=== PATIENT | female | born 1945 | race Caucasian/White ===

== ENCOUNTER 2022-10-14 14:38 | Inpatient (IN) | payer OTHER ==
[2022-10-14 16:09] VITALS: BMI 31.8
[2022-10-14] MEDS ORDERED: ALBUTEROL SO4 2.5/IPRATROPIUM 0.5 INH SOL 3 ML VIAL.NEB. NEB ONE ×2 (16:51→16:58)
[2022-10-14 17:48] LABS: HEMATOCRIT 44.6 % (32.4-45.2); HEMOGLOBIN 14.7 GM/dL (10.7-15.3); MCH 32.5 pg (25.7-33.7); MCHC 32.9 g/dl (32.0-36.0); MEAN CELL VOLUME 98.6 fl (80-96); MEAN PLT VOLUME 7.6 fl (7.5-11.1); PLATELET COUNT 222 10^3/uL (134-434); RBC 4.52 M/mm3 (3.60-5.2); RDW 14.4 % (11.6-15.6); WHITE BLOOD COUNT 19.4 K/mm3 (4.0-10.0)
[2022-10-14 18:12] LABS: CALCIUM 8.7 mg/dL (8.5-10.1)
[2022-10-14 18:13] LABS: ALBUMIN 3.1 g/dl (3.4-5.0); BLOOD UREA NITROGEN 22.7 mg/dL (7-18); MAGNESIUM 2.4 mg/dL (1.8-2.4)
[2022-10-14 18:16] LABS: CREATININE 0.8 mg/dL (0.55-1.3)
[2022-10-14 18:17] LABS: TOT PROT 6.9 g/dl (6.4-8.2)
[2022-10-14] MEDS ORDERED: ACETAMINOPHEN 500 MG TABLET (FP) PO ONE (18:21)
[2022-10-14] MEDS ORDERED: ACETAMINOPHEN 325 MG TABLET (FP) ONE (18:24)
[2022-10-14 18:44] LABS: VENOUS BASE EXCESS 4.7 mmol/L (-2-2); VENOUS O2 SATURATION 29.4 % (70-80); VENOUS PH 7.295 (7.310-7.410)
[2022-10-14] MEDS ORDERED: ACETAMINOPHEN 325 MG TABLET (FP) PO PRN (20:00)
[2022-10-14] MEDS ORDERED: CARVEDILOL 6.25 MG TABLET (FP) ONE (21:51)
[2022-10-14] MEDS ORDERED: ATORVASTATIN CA 10 MG TABLET (FP) ONE (21:51)
[2022-10-14] MEDS ORDERED: ASPIRIN 325 MG TABLET ONE (21:51)
[2022-10-14] MEDS ORDERED: OSELTAMIVIR PHOSPHATE 75 MG CAPSULE ONE (21:51)
[2022-10-14] MEDS ORDERED: methylPREDNISolone NA SUCC 40 MG/1 ML VIAL ONE (21:52)
[2022-10-14] MEDS ORDERED: HEPARIN NA (PORCINE) 5,000 UNITS/ML 1ML VIAL ONE (21:52)
[2022-10-14] MEDS ORDERED: CARVEDILOL 6.25 MG TABLET (FP) PO SCH (22:00)
[2022-10-14] MEDS: HEPARIN NA (PORCINE) 5,000 UNITS/ML 1ML VIAL SQ SCH (22:10)
[2022-10-14] MEDS: ASPIRIN 325 MG TABLET PO SCH (22:10)
[2022-10-14] MEDS: ATORVASTATIN CA 10 MG TABLET (FP) PO SCH (22:10)
[2022-10-14] MEDS: methylPREDNISolone NA SUCC 40 MG/1 ML VIAL IVPUSH SCH (22:10)
[2022-10-14] MEDS: OSELTAMIVIR PHOSPHATE 75 MG CAPSULE PO SCH (22:10)
[2022-10-14] MEDS: INSULIN SLIDING SCALE (NOVOLOG) 1 VIAL SQ SCH (22:11)
[2022-10-14] MEDS: MOMETASONE FUROATE 220 MCG/IH INHALER IH SCH (23:22)
[2022-10-15] MEDS ORDERED: ALBUTEROL SO4 0.083% IH SOL 2.5 MG/3 ML VIAL.NEB. NEB ONE ×3 (00:47→15:46)
[2022-10-15] MEDS ORDERED: guaiFENesin 200 MG/10 ML 10 ML UNIT-DOSE CUPS ONE (00:47)
[2022-10-15] MEDS: guaiFENesin 200 MG/10 ML 10 ML UNIT-DOSE CUPS PO PRN ×2 (00:55→15:46)
[2022-10-15] MEDS: ALBUTEROL SO4 0.083% IH SOL 2.5 MG/3 ML VIAL.NEB. NEB PRN ×3 (00:55→15:46)
[2022-10-15] MEDS ORDERED: methylPREDNISolone NA SUCC 40 MG/1 ML VIAL ONE ×4 (06:29→21:05)
[2022-10-15] MEDS: methylPREDNISolone NA SUCC 40 MG/1 ML VIAL IVPUSH SCH ×4 (06:36→21:16)
[2022-10-15] MEDS: INSULIN SLIDING SCALE (NOVOLOG) 1 VIAL SQ SCH ×4 (08:06→21:31)
[2022-10-15] MEDS ORDERED: buPROPion HCL 100 MG TABLET ONE (08:10)
[2022-10-15] MEDS ORDERED: FOLIC ACID 1 MG TABLET (FP) ONE (08:10)
[2022-10-15] MEDS ORDERED: CARVEDILOL 6.25 MG TABLET (FP) ONE (08:10)
[2022-10-15] MEDS ORDERED: OSELTAMIVIR PHOSPHATE 75 MG CAPSULE ONE (08:10)
[2022-10-15] MEDS ORDERED: HEPARIN NA (PORCINE) 5,000 UNITS/ML 1ML VIAL ONE ×2 (08:10→21:05)
[2022-10-15] MEDS ORDERED: AZITHROMYCIN IVPB 500 MG/250 ML BAG IVPB ONE (08:11)
[2022-10-15] MEDS ORDERED: CEFTRIAXONE 1 GM/50 ML BAG ONE (08:11)
[2022-10-15] MEDS ORDERED: ACETAMINOPHEN 325 MG TABLET (FP) ONE ×2 (08:18→12:01)
[2022-10-15] MEDS: buPROPion HCL 75 MG TABLET PO SCH ×2 (08:26→22:25)
[2022-10-15] MEDS: HEPARIN NA (PORCINE) 5,000 UNITS/ML 1ML VIAL SQ SCH ×2 (09:07→21:16)
[2022-10-15] MEDS: CEFTRIAXONE 1 GM in DEXTROSE 5%-WATER - 50 ML IVPB SCH (09:07)
[2022-10-15] MEDS: FAMOTIDINE 20 MG TABLET PO SCH (09:07)
[2022-10-15] MEDS: metoPROLOL SUCCINATE 25 MG TAB.SR.24H (FP) PO SCH (09:07)
[2022-10-15] MEDS: FOLIC ACID 1 MG TABLET (FP) PO SCH (09:07)
[2022-10-15] MEDS: MOMETASONE FUROATE 220 MCG/IH INHALER IH SCH (09:07)
[2022-10-15] MEDS: OSELTAMIVIR PHOSPHATE 75 MG CAPSULE PO SCH (09:07)
[2022-10-15] MEDS: AZITHROMYCIN IVPB 500 MG/250 ML BAG IVPB SCH (09:46)
[2022-10-15] MEDS: TIOTROPIUM BROMIDE 2.5 MCG (SPIRIVA) RESPIMAT INHALER IH SCH (09:46)
[2022-10-15 12:43] LABS: HEMATOCRIT 41.9 % (32.4-45.2); HEMOGLOBIN 13.6 GM/dL (10.7-15.3); MCH 32.3 pg (25.7-33.7); MCHC 32.5 g/dl (32.0-36.0); MEAN CELL VOLUME 99.5 fl (80-96); MEAN PLT VOLUME 8.2 fl (7.5-11.1); PLATELET COUNT 206 10^3/uL (134-434); RBC 4.21 M/mm3 (3.60-5.2); RDW 14.3 % (11.6-15.6); WHITE BLOOD COUNT 16.8 K/mm3 (4.0-10.0)
[2022-10-15 13:04] LABS: CALCIUM 8.5 mg/dL (8.5-10.1)
[2022-10-15 13:07] LABS: BLOOD UREA NITROGEN 24.4 mg/dL (7-18)
[2022-10-15 13:08] LABS: ALBUMIN 2.8 g/dl (3.4-5.0); CREATININE 0.7 mg/dL (0.55-1.3)
[2022-10-15 13:09] LABS: TOT PROT 6.4 g/dl (6.4-8.2)
[2022-10-15 13:47] LABS: ANISOCYTOSIS 0; MACROCYTOSIS 0
[2022-10-15] MEDS ORDERED: guaiFENesin/D-METHORPHAN HB 10 ML UNIT-DOSE CUPS ONE (15:42)
[2022-10-15] MEDS ORDERED: FUROSEMIDE 40 MG/4 ML INJECTABLE VIAL ONE (18:00)
[2022-10-15] MEDS: FUROSEMIDE 40 MG/4 ML INJECTABLE VIAL IVPUSH SCH (18:12)
[2022-10-15] MEDS ORDERED: ASPIRIN 325 MG TABLET ONE (21:04)
[2022-10-15] MEDS ORDERED: ATORVASTATIN CA 10 MG TABLET (FP) ONE (21:04)
[2022-10-15] MEDS: ASPIRIN 325 MG TABLET PO SCH (21:16)
[2022-10-15] MEDS: ATORVASTATIN CA 10 MG TABLET (FP) PO SCH (22:10)
[2022-10-16] MEDS: MOMETASONE FUROATE 220 MCG/IH INHALER IH SCH ×3 (01:58→21:43)
[2022-10-16] MEDS ORDERED: methylPREDNISolone NA SUCC 40 MG/1 ML VIAL ONE (02:41)
[2022-10-16] MEDS: methylPREDNISolone NA SUCC 40 MG/1 ML VIAL IVPUSH SCH ×4 (02:51→21:29)
[2022-10-16] MEDS: INSULIN SLIDING SCALE (NOVOLOG) 1 VIAL SQ SCH ×4 (09:12→21:43)
[2022-10-16] MEDS: buPROPion HCL 75 MG TABLET PO SCH ×2 (09:13→21:43)
[2022-10-16] MEDS: CEFTRIAXONE 1 GM in DEXTROSE 5%-WATER - 50 ML IVPB SCH (09:14)
[2022-10-16] MEDS: FOLIC ACID 1 MG TABLET (FP) PO SCH (09:15)
[2022-10-16] MEDS: metoPROLOL SUCCINATE 25 MG TAB.SR.24H (FP) PO SCH (09:15)
[2022-10-16] MEDS: FAMOTIDINE 20 MG TABLET PO SCH (09:15)
[2022-10-16] MEDS: FUROSEMIDE 40 MG/4 ML INJECTABLE VIAL IVPUSH SCH (09:15)
[2022-10-16] MEDS: HEPARIN NA (PORCINE) 5,000 UNITS/ML 1ML VIAL SQ SCH ×2 (09:15→21:29)
[2022-10-16] MEDS: AZITHROMYCIN IVPB 500 MG/250 ML BAG IVPB SCH (10:19)
[2022-10-16 10:53] LABS: HEMATOCRIT 45.2 % (32.4-45.2); HEMOGLOBIN 14.9 GM/dL (10.7-15.3); MCH 32.5 pg (25.7-33.7); MEAN CELL VOLUME 98.4 fl (80-96); MEAN PLT VOLUME 8.1 fl (7.5-11.1); PLATELET COUNT 274 10^3/uL (134-434); RDW 14.2 % (11.6-15.6); WHITE BLOOD COUNT 17.6 K/mm3 (4.0-10.0)
[2022-10-16 11:14] LABS: BLOOD UREA NITROGEN 33.1 mg/dL (7-18)
[2022-10-16 11:15] LABS: ALBUMIN 3.1 g/dl (3.4-5.0)
[2022-10-16 11:18] LABS: CREATININE 1.1 mg/dL (0.55-1.3)
[2022-10-16 11:19] LABS: BILIRUBIN,TOTAL 1.1 mg/dL (0.2-1); TOT PROT 7.2 g/dl (6.4-8.2)
[2022-10-16] MEDS: TIOTROPIUM BROMIDE 2.5 MCG (SPIRIVA) RESPIMAT INHALER IH SCH (11:19)
[2022-10-16 11:35] LABS: ANISOCYTOSIS 1+; MACROCYTOSIS 0; TEAR DROP CELLS 1+
[2022-10-16] MEDS: ALBUTEROL SO4 0.083% IH SOL 2.5 MG/3 ML VIAL.NEB. NEB SCH ×3 (11:52→20:05)
[2022-10-16] MEDS: ATORVASTATIN CA 10 MG TABLET (FP) PO SCH (21:29)
[2022-10-16] MEDS: ASPIRIN 325 MG TABLET PO SCH (21:29)
[2022-10-17] MEDS: methylPREDNISolone NA SUCC 40 MG/1 ML VIAL IVPUSH SCH ×3 (03:00→21:21)
[2022-10-17] MEDS: INSULIN SLIDING SCALE (NOVOLOG) 1 VIAL SQ SCH ×4 (06:30→21:26)
[2022-10-17] MEDS: ALBUTEROL SO4 0.083% IH SOL 2.5 MG/3 ML VIAL.NEB. NEB SCH ×4 (08:18→20:52)
[2022-10-17] MEDS: CEFTRIAXONE 1 GM in DEXTROSE 5%-WATER - 50 ML IVPB SCH (09:25)
[2022-10-17] MEDS: FOLIC ACID 1 MG TABLET (FP) PO SCH (09:25)
[2022-10-17] MEDS: TIOTROPIUM BROMIDE 2.5 MCG (SPIRIVA) RESPIMAT INHALER IH SCH (09:25)
[2022-10-17] MEDS: metoPROLOL SUCCINATE 25 MG TAB.SR.24H (FP) PO SCH (09:25)
[2022-10-17] MEDS: HEPARIN NA (PORCINE) 5,000 UNITS/ML 1ML VIAL SQ SCH ×2 (09:25→21:19)
[2022-10-17] MEDS: FUROSEMIDE 40 MG/4 ML INJECTABLE VIAL IVPUSH SCH (09:25)
[2022-10-17] MEDS: FAMOTIDINE 20 MG TABLET PO SCH (09:25)
[2022-10-17] MEDS: AZITHROMYCIN IVPB 500 MG/250 ML BAG IVPB SCH (10:49)
[2022-10-17] MEDS: MOMETASONE FUROATE 220 MCG/IH INHALER IH SCH ×2 (10:49→21:53)
[2022-10-17] MEDS: VENLAFAXINE HCL 37.5 MG E.R. CAPSULE PO SCH (11:40)
[2022-10-17] MEDS: ASPIRIN 325 MG TABLET PO SCH (21:19)
[2022-10-17] MEDS: ATORVASTATIN CA 10 MG TABLET (FP) PO SCH (21:19)
[2022-10-18] MEDS: INSULIN SLIDING SCALE (NOVOLOG) 1 VIAL SQ SCH ×4 (06:48→21:24)
[2022-10-18 08:22] LABS: CALCIUM 8.5 mg/dL (8.5-10.1)
[2022-10-18 08:25] LABS: CREATININE 0.9 mg/dL (0.55-1.3)
[2022-10-18 08:26] LABS: BILIRUBIN,TOTAL 1.1 mg/dL (0.2-1); TOT PROT 6.8 g/dl (6.4-8.2)
[2022-10-18 08:30] LABS: BLOOD UREA NITROGEN 36.3 mg/dL (7-18)
[2022-10-18] MEDS: ALBUTEROL SO4 0.083% IH SOL 2.5 MG/3 ML VIAL.NEB. NEB SCH ×4 (08:50→19:55)
[2022-10-18] MEDS: VENLAFAXINE HCL 37.5 MG E.R. CAPSULE PO SCH (09:14)
[2022-10-18] MEDS: MOMETASONE FUROATE 220 MCG/IH INHALER IH SCH ×2 (09:14→21:37)
[2022-10-18] MEDS: HEPARIN NA (PORCINE) 5,000 UNITS/ML 1ML VIAL SQ SCH ×2 (09:15→21:15)
[2022-10-18] MEDS: FOLIC ACID 1 MG TABLET (FP) PO SCH (09:15)
[2022-10-18] MEDS: metoPROLOL SUCCINATE 25 MG TAB.SR.24H (FP) PO SCH (09:16)
[2022-10-18] MEDS: CEFTRIAXONE 1 GM in DEXTROSE 5%-WATER - 50 ML IVPB SCH (09:16)
[2022-10-18] MEDS: TIOTROPIUM BROMIDE 2.5 MCG (SPIRIVA) RESPIMAT INHALER IH SCH (09:16)
[2022-10-18] MEDS: FAMOTIDINE 20 MG TABLET PO SCH (09:16)
[2022-10-18] MEDS: methylPREDNISolone NA SUCC 40 MG/1 ML VIAL IVPUSH SCH ×2 (09:16→21:14)
[2022-10-18] MEDS: FUROSEMIDE 40 MG/4 ML INJECTABLE VIAL IVPUSH SCH (09:16)
[2022-10-18] MEDS: AZITHROMYCIN IVPB 500 MG/250 ML BAG IVPB SCH (10:14)
[2022-10-18 11:36] LABS: BASO % 0.1 % (0-2.0); HEMATOCRIT 41.7 % (32.4-45.2); HEMOGLOBIN 13.7 GM/dL (10.7-15.3); LYMPH % 4.7 % (8-40); MCH 32.1 pg (25.7-33.7); MCHC 32.8 g/dl (32.0-36.0); MEAN CELL VOLUME 97.9 fl (80-96); MEAN PLT VOLUME 8.1 fl (7.5-11.1); MONO % 5.4 % (3.8-10.2); NEUT % 89.8 % (42.8-82.8); PLATELET COUNT 226 10^3/uL (134-434); RBC 4.26 M/mm3 (3.60-5.2); RDW 13.7 % (11.6-15.6); WHITE BLOOD COUNT 11.2 K/mm3 (4.0-10.0)
[2022-10-18] MEDS ORDERED: BENZOCAINE/MENTH/CETYLPYRD CL 1 EACH LOZENGE MM PRN (11:59)
[2022-10-18] MEDS: ATORVASTATIN CA 10 MG TABLET (FP) PO SCH (21:15)
[2022-10-18] MEDS: ASPIRIN 325 MG TABLET PO SCH (21:15)
[2022-10-19] MEDS: INSULIN SLIDING SCALE (NOVOLOG) 1 VIAL SQ SCH ×4 (06:17→23:20)
[2022-10-19] MEDS: ALBUTEROL SO4 0.083% IH SOL 2.5 MG/3 ML VIAL.NEB. NEB SCH ×4 (08:21→20:04)
[2022-10-19] MEDS: methylPREDNISolone NA SUCC 40 MG/1 ML VIAL IVPUSH SCH ×2 (10:05→23:21)
[2022-10-19] MEDS: metoPROLOL SUCCINATE 25 MG TAB.SR.24H (FP) PO SCH (10:05)
[2022-10-19] MEDS: FOLIC ACID 1 MG TABLET (FP) PO SCH (10:05)
[2022-10-19] MEDS: FUROSEMIDE 20 MG TABLET (FP) PO SCH (10:05)
[2022-10-19] MEDS: FAMOTIDINE 20 MG TABLET PO SCH (10:05)
[2022-10-19] MEDS: CEFTRIAXONE 1 GM in DEXTROSE 5%-WATER - 50 ML IVPB SCH (10:05)
[2022-10-19] MEDS: HEPARIN NA (PORCINE) 5,000 UNITS/ML 1ML VIAL SQ SCH ×2 (10:05→23:13)
[2022-10-19] MEDS: VENLAFAXINE HCL 37.5 MG E.R. CAPSULE PO SCH (10:07)
[2022-10-19] MEDS: TIOTROPIUM BROMIDE 2.5 MCG (SPIRIVA) RESPIMAT INHALER IH SCH (10:09)
[2022-10-19] MEDS: MOMETASONE FUROATE 220 MCG/IH INHALER IH SCH ×2 (10:09→23:13)
[2022-10-19] MEDS: AZITHROMYCIN IVPB 500 MG/250 ML BAG IVPB SCH (10:09)
[2022-10-19] MEDS ORDERED: MAG HYDROX/AL HYDROX/SIMETH 30 ML UNIT-DOSE CUP PO PRN (18:06)
[2022-10-19] MEDS ORDERED: POLYETHYLENE GLYCOL (HEALTHYLAX) 3350 17 GM PACKET PO PRN (18:07)
[2022-10-19] MEDS: ASPIRIN 325 MG TABLET PO SCH (23:13)
[2022-10-19] MEDS: ATORVASTATIN CA 10 MG TABLET (FP) PO SCH (23:13)
[2022-10-20] MEDS: INSULIN SLIDING SCALE (NOVOLOG) 1 VIAL SQ SCH ×4 (06:10→21:21)
[2022-10-20] MEDS ORDERED: INSULIN (LEVEMIR) 100 UNITS/ML UNITS SQ ONE ×2 (06:11→06:20)
[2022-10-20] MEDS ORDERED: INSULIN (NOVOLOG) ASPART 100 UNITS/ML 10ML VIAL ONE ×3 (06:11→21:49)
[2022-10-20] MEDS: ALBUTEROL SO4 0.083% IH SOL 2.5 MG/3 ML VIAL.NEB. NEB SCH ×4 (07:50→21:15)
[2022-10-20 08:48] LABS: BASO % 0.3 % (0-2.0); HEMATOCRIT 39.8 % (32.4-45.2); LYMPH % 6.3 % (8-40); MCH 32.2 pg (25.7-33.7); MCHC 32.7 g/dl (32.0-36.0); MEAN CELL VOLUME 98.2 fl (80-96); MEAN PLT VOLUME 8.7 fl (7.5-11.1); MONO % 4.5 % (3.8-10.2); NEUT % 88.9 % (42.8-82.8); PLATELET COUNT 195 10^3/uL (134-434); RBC 4.06 M/mm3 (3.60-5.2); RDW 13.8 % (11.6-15.6)
[2022-10-20 09:34] LABS: BLOOD UREA NITROGEN 29.8 mg/dL (7-18); CALCIUM 8.6 mg/dL (8.5-10.1)
[2022-10-20 09:35] LABS: ALBUMIN 2.8 g/dl (3.4-5.0)
[2022-10-20 09:36] LABS: CHOLESTEROL 140 mg/dL (50-200); CREATININE 0.8 mg/dL (0.55-1.3)
[2022-10-20 09:37] LABS: TRIGLYCERIDES 119 mg/dL (0-150)
[2022-10-20 09:38] LABS: BILIRUBIN,TOTAL 1.1 mg/dL (0.2-1); LDL CHOLESTEROL (ONLY SJRH) 64 mg/dL (5-100); TOT PROT 5.9 g/dl (6.4-8.2)
[2022-10-20 09:39] LABS: HDL CHOLESTEROL 64 mg/dL (40-60)
[2022-10-20] MEDS: metoPROLOL SUCCINATE 25 MG TAB.SR.24H (FP) PO SCH (09:59)
[2022-10-20] MEDS: HEPARIN NA (PORCINE) 5,000 UNITS/ML 1ML VIAL SQ SCH ×2 (09:59→21:21)
[2022-10-20] MEDS: FUROSEMIDE 20 MG TABLET (FP) PO SCH (09:59)
[2022-10-20] MEDS: FAMOTIDINE 20 MG TABLET PO SCH (09:59)
[2022-10-20] MEDS: FOLIC ACID 1 MG TABLET (FP) PO SCH (09:59)
[2022-10-20] MEDS: methylPREDNISolone NA SUCC 40 MG/1 ML VIAL IVPUSH SCH ×2 (09:59→21:21)
[2022-10-20] MEDS: TIOTROPIUM BROMIDE 2.5 MCG (SPIRIVA) RESPIMAT INHALER IH SCH (10:00)
[2022-10-20] MEDS: VENLAFAXINE HCL 37.5 MG E.R. CAPSULE PO SCH (10:00)
[2022-10-20] MEDS: MOMETASONE FUROATE 220 MCG/IH INHALER IH SCH ×2 (10:01→21:22)
[2022-10-20 14:07] LABS: BILIRUBIN,DIRECT 0.4 mg/dL (0.0-0.2)
[2022-10-20] MEDS: ASPIRIN 325 MG TABLET PO SCH (21:21)
[2022-10-20] MEDS: ATORVASTATIN CA 10 MG TABLET (FP) PO SCH (21:22)
[2022-10-21] MEDS: INSULIN SLIDING SCALE (NOVOLOG) 1 VIAL SQ SCH ×4 (06:55→22:55)
[2022-10-21] MEDS: metFORMIN HCL 500 MG TABLET (FP) PO SCH (06:55)
[2022-10-21] MEDS: ALBUTEROL SO4 0.083% IH SOL 2.5 MG/3 ML VIAL.NEB. NEB SCH ×4 (07:40→20:42)
[2022-10-21 08:12] LABS: ALBUMIN 2.8 g/dl (3.4-5.0)
[2022-10-21 08:15] LABS: BILIRUBIN,DIRECT 0.4 mg/dL (0.0-0.2)
[2022-10-21 08:17] LABS: TOT PROT 5.8 g/dl (6.4-8.2)
[2022-10-21] MEDS: metoPROLOL SUCCINATE 25 MG TAB.SR.24H (FP) PO SCH (09:46)
[2022-10-21] MEDS: FOLIC ACID 1 MG TABLET (FP) PO SCH (09:46)
[2022-10-21] MEDS: HEPARIN NA (PORCINE) 5,000 UNITS/ML 1ML VIAL SQ SCH ×2 (09:46→22:54)
[2022-10-21] MEDS: methylPREDNISolone NA SUCC 40 MG/1 ML VIAL IVPUSH SCH ×2 (09:46→22:54)
[2022-10-21] MEDS: TIOTROPIUM BROMIDE 2.5 MCG (SPIRIVA) RESPIMAT INHALER IH SCH (09:47)
[2022-10-21] MEDS: VENLAFAXINE HCL 37.5 MG E.R. CAPSULE PO SCH (09:47)
[2022-10-21] MEDS: MOMETASONE FUROATE 220 MCG/IH INHALER IH SCH ×2 (09:47→22:54)
[2022-10-21] MEDS: PANTOPRAZOLE 40 MG TABLET PO SCH (12:28)
[2022-10-21] MEDS ORDERED: SIMETHICONE 80 MG TAB.CHEW (FP) PO PRN (19:16)
[2022-10-21] MEDS: ATORVASTATIN CA 10 MG TABLET (FP) PO SCH (22:54)
[2022-10-21] MEDS: ASPIRIN 325 MG TABLET PO SCH (22:54)
[2022-10-22] MEDS: metFORMIN HCL 500 MG TABLET (FP) PO SCH (06:24)
[2022-10-22] MEDS: INSULIN SLIDING SCALE (NOVOLOG) 1 VIAL SQ SCH ×3 (06:24→16:56)
[2022-10-22] MEDS: ALBUTEROL SO4 0.083% IH SOL 2.5 MG/3 ML VIAL.NEB. NEB SCH ×3 (08:40→15:44)
[2022-10-22] MEDS: VENLAFAXINE HCL 37.5 MG E.R. CAPSULE PO SCH (09:57)
[2022-10-22] MEDS: methylPREDNISolone NA SUCC 40 MG/1 ML VIAL IVPUSH SCH (09:57)
[2022-10-22] MEDS: TIOTROPIUM BROMIDE 2.5 MCG (SPIRIVA) RESPIMAT INHALER IH SCH (09:58)
[2022-10-22] MEDS: MOMETASONE FUROATE 220 MCG/IH INHALER IH SCH (09:58)
[2022-10-22] MEDS: FOLIC ACID 1 MG TABLET (FP) PO SCH (09:58)
[2022-10-22] MEDS: metoPROLOL SUCCINATE 25 MG TAB.SR.24H (FP) PO SCH (09:58)
[2022-10-22] MEDS: PANTOPRAZOLE 40 MG TABLET PO SCH (10:17)
[2022-10-22 11:26] VITALS: RESP 22
[2022-10-22] MEDS: HEPARIN NA (PORCINE) 5,000 UNITS/ML 1ML VIAL SQ SCH (12:00)
[2022-10-22 13:31] LABS: CALCIUM 8.7 mg/dL (8.5-10.1)
[2022-10-22 13:32] LABS: BLOOD UREA NITROGEN 36.7 mg/dL (7-18)
[2022-10-22 13:35] LABS: CREATININE 0.9 mg/dL (0.55-1.3)
[2022-10-22 13:36] LABS: BILIRUBIN,TOTAL 1.4 mg/dL (0.2-1)
[2022-10-22 15:04] LABS: BILIRUBIN,DIRECT 0.5 mg/dL (0.0-0.2)
[2022-10-22 16:13] VITALS: BP 124/64; PULSE 66; TEMP 97.6
== END 2022-10-22 17:26 | DRG 189 ==
LOC: JER 14:38 → JERBED 18:48 → J4W 10-16 06:53
PROVIDERS: ADMIT Internal Medicine; ATTEND Internal Medicine
DX: J96.92 Respiratory failure, unspecified with hypercapnia (principal); J44.1 Chronic obstructive pulmonary disease with (acute) exacerbation; I25.10 Atherosclerotic heart disease of native coronary artery without angina pectoris; I10 Essential (primary) hypertension; E78.5 Hyperlipidemia, unspecified; J30.9 Allergic rhinitis, unspecified; E05.90 Thyrotoxicosis, unspecified without thyrotoxic crisis or storm; G43.909 Migraine, unspecified, not intractable, without status migrainosus; F41.8 Other specified anxiety disorders; E66.9 Obesity, unspecified; Z68.31 Body mass index [BMI] 31.0-31.9, adult; F43.10 Post-traumatic stress disorder, unspecified; J10.1 Influenza due to other identified influenza virus with other respiratory manifestations; F17.210 Nicotine dependence, cigarettes, uncomplicated; R94.5 Abnormal results of liver function studies; R79.89 Other specified abnormal findings of blood chemistry; E11.9 Type 2 diabetes mellitus without complications; K76.0 Fatty (change of) liver, not elsewhere classified; Z99.81 Dependence on supplemental oxygen
CPT/HCPCS: 0241U-QW; 36415; 71045-TC-FY; 71250-TC; 76705-TC; 80053; 80061; 80076; 82248; 82550; 82803; 82962; 83036; 83735; 83880; 84484; 85025; 86704; 86803; 87040; 87340; 87517; 87899; 93005; 93010; 94640; 94660; 97116-GP; 97161-GP; 99285-25; C9803-CS; J1644; U0003; U0005

== ENCOUNTER 2022-10-30 14:47 | Inpatient (IN) | payer OTHER ==
[2022-10-30 15:31] VITALS: BMI 37.9
[2022-10-30 16:18] LABS: BASO % 0.3 % (0-2.0); EOS % 0.2 % (0-4.5); HEMOGLOBIN 12.2 GM/dL (10.7-15.3); LYMPH % 6.7 % (8-40); MCH 31.7 pg (25.7-33.7); MCHC 32.2 g/dl (32.0-36.0); MEAN CELL VOLUME 98.4 fl (80-96); MEAN PLT VOLUME 7.9 fl (7.5-11.1); MONO % 4.8 % (3.8-10.2); PLATELET COUNT 193 10^3/uL (134-434); RBC 3.86 M/mm3 (3.60-5.2); RDW 14.2 % (11.6-15.6); WHITE BLOOD COUNT 12.8 K/mm3 (4.0-10.0)
[2022-10-30 16:25] LABS: INR 0.97 (0.83-1.09); PROTHROMBIN TIME (PATIENT) 11.1 SEC (9.7-13.0)
[2022-10-30 16:28] LABS: ACTIVATED PTT 26.1 SECONDS (25.2-36.5)
[2022-10-30] MEDS ORDERED: ALBUTEROL SO4 0.083% IH SOL 2.5 MG/3 ML VIAL.NEB. NEB PRN (16:44)
[2022-10-30] MEDS ORDERED: POLYETHYLENE GLYCOL (HEALTHYLAX) 3350 17 GM PACKET PO PRN (16:44)
[2022-10-30] MEDS ORDERED: MAG HYDROX/AL HYDROX/SIMETH 30 ML UNIT-DOSE CUP PO PRN (16:44)
[2022-10-30] MEDS ORDERED: guaiFENesin 200 MG/10 ML 10 ML UNIT-DOSE CUPS PO PRN (16:44)
[2022-10-30] MEDS ORDERED: SIMETHICONE 80 MG TAB.CHEW (FP) PO PRN (16:44)
[2022-10-30 16:48] LABS: ALBUMIN 2.7 g/dl (3.4-5.0); BLOOD UREA NITROGEN 27.1 mg/dL (7-18); CALCIUM 8.2 mg/dL (8.5-10.1); MAGNESIUM 1.9 mg/dL (1.8-2.4)
[2022-10-30 16:52] LABS: BILIRUBIN,TOTAL 0.7 mg/dL (0.2-1); TOT PROT 5.6 g/dl (6.4-8.2)
[2022-10-30] MEDS ORDERED: SIMETHICONE 80 MG TAB.CHEW (FP) ONE (20:30)
[2022-10-30] MEDS ORDERED: ASPIRIN 325 MG TABLET PO SCH (22:00)
[2022-10-30] MEDS ORDERED: ATORVASTATIN CA 10 MG TABLET (FP) PO SCH (22:00)
[2022-10-30] MEDS ORDERED: ASPIRIN 325 MG TABLET ONE (23:20)
[2022-10-30] MEDS ORDERED: HEPARIN NA (PORCINE) 5,000 UNITS/ML 1ML VIAL ONE (23:20)
[2022-10-30] MEDS ORDERED: ATORVASTATIN CA 10 MG TABLET (FP) ONE (23:20)
[2022-10-30] MEDS: HEPARIN NA (PORCINE) 5,000 UNITS/ML 1ML VIAL SQ SCH (23:29)
[2022-10-30] MEDS: INSULIN SLIDING SCALE (NOVOLOG) 1 VIAL SQ SCH (23:45)
[2022-10-30] MEDS: MOMETASONE FUROATE 220 MCG/IH INHALER IH SCH (23:45)
[2022-10-31] MEDS ORDERED: metFORMIN HCL 500 MG TABLET (FP) PO SCH (07:00)
[2022-10-31] MEDS ORDERED: metFORMIN HCL 500 MG TABLET (FP) ONE (07:58)
[2022-10-31 09:37] LABS: BASO % 0.8 % (0-2.0); HEMOGLOBIN 13.5 GM/dL (10.7-15.3); LYMPH % 30.9 % (8-40); MCH 32.5 pg (25.7-33.7); MCHC 32.8 g/dl (32.0-36.0); MEAN CELL VOLUME 98.9 fl (80-96); MEAN PLT VOLUME 9.2 fl (7.5-11.1); NEUT % 63.3 % (42.8-82.8); RBC 4.14 M/mm3 (3.60-5.2); RDW 14.1 % (11.6-15.6); WHITE BLOOD COUNT 10.1 K/mm3 (4.0-10.0)
[2022-10-31 09:38] LABS: PLATELET COUNT 126 10^3/uL (134-434)
[2022-10-31] MEDS ORDERED: VENLAFAXINE HCL PO SCH (10:00)
[2022-10-31] MEDS ORDERED: predniSONE 10 MG TABLET (UD) PO SCH (10:00)
[2022-10-31] MEDS ORDERED: [UNRECOGNIZED DRUG - OTHER] PO SCH (10:00)
[2022-10-31] MEDS ORDERED: TIOTROPIUM BROMIDE 2.5 MCG (SPIRIVA) RESPIMAT INHALER IH SCH (10:00)
[2022-10-31] MEDS ORDERED: FOLIC ACID 1 MG TABLET (FP) PO SCH (10:00)
[2022-10-31] MEDS ORDERED: PANTOPRAZOLE 40 MG TABLET PO SCH (10:00)
[2022-10-31] MEDS ORDERED: predniSONE 20 MG TABLET (UD) PO SCH (10:00)
[2022-10-31] MEDS ORDERED: metoPROLOL SUCCINATE 25 MG TAB.SR.24H (FP) PO SCH (10:00)
[2022-10-31] MEDS ORDERED: PANTOPRAZOLE 40 MG TABLET PO ONE (10:35)
[2022-10-31] MEDS ORDERED: VENLAFAXINE HCL 75 MG TABLET ONE (10:35)
[2022-10-31] MEDS ORDERED: metoPROLOL SUCCINATE 25 MG TAB.SR.24H (FP) PO ONE (10:36)
[2022-10-31] MEDS ORDERED: predniSONE 20 MG TABLET (UD) ONE (10:36)
[2022-10-31] MEDS ORDERED: FOLIC ACID 1 MG TABLET (FP) ONE (10:36)
[2022-10-31] MEDS ORDERED: HEPARIN NA (PORCINE) 5,000 UNITS/ML 1ML VIAL ONE (10:37)
[2022-10-31 10:46] LABS: ALBUMIN 2.8 g/dl (3.4-5.0); BLOOD UREA NITROGEN 18.6 mg/dL (7-18); CALCIUM 8.3 mg/dL (8.5-10.1); TOT PROT 5.8 g/dl (6.4-8.2)
[2022-10-31 10:47] LABS: BILIRUBIN,TOTAL 1.1 mg/dL (0.2-1); CREATININE 0.8 mg/dL (0.55-1.3)
[2022-10-31] MEDS: HEPARIN NA (PORCINE) 5,000 UNITS/ML 1ML VIAL SQ SCH ×2 (10:54→22:56)
[2022-10-31] MEDS: INSULIN SLIDING SCALE (NOVOLOG) 1 VIAL SQ SCH ×3 (10:55→22:49)
[2022-10-31 10:56] LABS: N-TERMINAL BNP 426.7 pg/ml (5-450)
[2022-10-31] MEDS: MOMETASONE FUROATE 220 MCG/IH INHALER IH SCH ×2 (11:28→22:56)
[2022-10-31] MEDS ORDERED: POLYETHYLENE GLYCOL (HEALTHYLAX) 3350 17 GM PACKET PO PRN (20:36)
[2022-10-31] MEDS ORDERED: ALBUTEROL SO4 0.083% IH SOL 2.5 MG/3 ML VIAL.NEB. NEB PRN (20:36)
[2022-10-31] MEDS ORDERED: guaiFENesin 200 MG/10 ML 10 ML UNIT-DOSE CUPS PO PRN (20:36)
[2022-10-31] MEDS ORDERED: SIMETHICONE 80 MG TAB.CHEW (FP) PO PRN (20:36)
[2022-10-31] MEDS ORDERED: MAG HYDROX/AL HYDROX/SIMETH 30 ML UNIT-DOSE CUP PO PRN (20:36)
[2022-10-31] MEDS ORDERED: ASPIRIN 325 MG TABLET PO SCH (22:00)
[2022-10-31] MEDS: ATORVASTATIN CA 10 MG TABLET (FP) PO SCH (22:49)
[2022-11-01] MEDS ORDERED: PROCHLORPERAZINE INJECTION 10 MG/2 ML VIAL IVPB ONE (03:00)
[2022-11-01] MEDS: metFORMIN HCL 500 MG TABLET (FP) PO SCH (06:21)
[2022-11-01] MEDS: INSULIN SLIDING SCALE (NOVOLOG) 1 VIAL SQ SCH ×5 (06:21→22:38)
[2022-11-01] MEDS ORDERED: PANTOPRAZOLE 40 MG TABLET PO SCH ×2 (10:00)
[2022-11-01] MEDS ORDERED: predniSONE 20 MG TABLET (UD) PO SCH (10:00)
[2022-11-01] MEDS: LACTOBACILLUS ACIDOPHILUS 1 TABLET PO SCH (11:21)
[2022-11-01] MEDS: metoPROLOL SUCCINATE 25 MG TAB.SR.24H (FP) PO SCH (11:22)
[2022-11-01] MEDS: ASPIRIN COATED 81 MG TABLET.EC PO SCH (11:23)
[2022-11-01] MEDS: FOLIC ACID 1 MG TABLET (FP) PO SCH (11:23)
[2022-11-01] MEDS: VENLAFAXINE HCL PO SCH (11:27)
[2022-11-01] MEDS: HEPARIN NA (PORCINE) 5,000 UNITS/ML 1ML VIAL SQ SCH ×2 (11:31→22:40)
[2022-11-01] MEDS: MOMETASONE FUROATE 220 MCG/IH INHALER IH SCH ×2 (11:31→22:43)
[2022-11-01] MEDS: TIOTROPIUM BROMIDE 2.5 MCG (SPIRIVA) RESPIMAT INHALER IH SCH (11:32)
[2022-11-01] MEDS: FLUTICASONE/UMECLIDIN/VILANTER(200-62.5-25 TRELEGY ELLIPTA) INAHLER IH SCH (12:14)
[2022-11-01] MEDS ORDERED: ONDANSETRON 4 MG/2 ML VIAL IVPB PRN (12:36)
[2022-11-01] MEDS: SODIUM CHLORIDE 1,000 ML IV SCH (13:45)
[2022-11-01 14:33] VITALS: RESP 18
[2022-11-01] MEDS: ATORVASTATIN CA 10 MG TABLET (FP) PO SCH (23:14)
[2022-11-02] MEDS: SODIUM CHLORIDE 1,000 ML IV SCH ×2 (06:50→16:50)
[2022-11-02] MEDS: metFORMIN HCL 500 MG TABLET (FP) PO SCH (06:50)
[2022-11-02] MEDS: INSULIN SLIDING SCALE (NOVOLOG) 1 VIAL SQ SCH ×3 (06:50→16:48)
[2022-11-02] MEDS ORDERED: PANTOPRAZOLE 40 MG TABLET PO SCH (10:00)
[2022-11-02] MEDS ORDERED: predniSONE 10 MG TABLET (UD) PO SCH ×2 (10:00)
[2022-11-02] MEDS: HEPARIN NA (PORCINE) 5,000 UNITS/ML 1ML VIAL SQ SCH (10:20)
[2022-11-02] MEDS: FOLIC ACID 1 MG TABLET (FP) PO SCH (10:21)
[2022-11-02] MEDS: metoPROLOL SUCCINATE 25 MG TAB.SR.24H (FP) PO SCH (10:21)
[2022-11-02] MEDS: ASPIRIN COATED 81 MG TABLET.EC PO SCH (10:21)
[2022-11-02] MEDS: LACTOBACILLUS ACIDOPHILUS 1 TABLET PO SCH (10:21)
[2022-11-02] MEDS: VENLAFAXINE HCL PO SCH (10:21)
[2022-11-02] MEDS: TIOTROPIUM BROMIDE 2.5 MCG (SPIRIVA) RESPIMAT INHALER IH SCH (10:28)
[2022-11-02] MEDS: FLUTICASONE/UMECLIDIN/VILANTER(200-62.5-25 TRELEGY ELLIPTA) INAHLER IH SCH (10:28)
[2022-11-02] MEDS: MOMETASONE FUROATE 220 MCG/IH INHALER IH SCH (10:31)
[2022-11-02 14:21] VITALS: BP 125/78; PULSE 106; TEMP 97.6
[2022-11-02 17:34] LABS: HEMATOCRIT 34.5 % (32.4-45.2); HEMOGLOBIN 11.6 GM/dL (10.7-15.3); MCH 32.7 pg (25.7-33.7); MCHC 33.8 g/dl (32.0-36.0); MEAN CELL VOLUME 96.8 fl (80-96); MEAN PLT VOLUME 8.5 fl (7.5-11.1); PLATELET COUNT 126 10^3/uL (134-434); RBC 3.56 M/mm3 (3.60-5.2); RDW 14.2 % (11.6-15.6); WHITE BLOOD COUNT 7.8 K/mm3 (4.0-10.0)
[2022-11-02 17:49] LABS: CALCIUM 7.3 mg/dL (8.5-10.1)
[2022-11-02 17:50] LABS: ALBUMIN 2.4 g/dl (3.4-5.0); BLOOD UREA NITROGEN 24.6 mg/dL (7-18)
[2022-11-02 17:53] LABS: CREATININE 0.8 mg/dL (0.55-1.3)
[2022-11-02 17:55] LABS: BILIRUBIN,TOTAL 0.7 mg/dL (0.2-1)
[2022-11-02 20:06] LABS: ANISOCYTOSIS 0; MACROCYTOSIS 0
[2022-11-04] MEDS ORDERED: predniSONE 10 MG TABLET (UD) PO SCH ×2 (10:00)
[2022-11-06] MEDS ORDERED: predniSONE 10 MG TABLET (UD) PO SCH ×2 (10:00)
== END 2022-11-02 18:00 | disposition home health service (06) | DRG 392 ==
LOC: JER 14:47 → JERBED 16:05 → J6S 10-31 20:34
PROVIDERS: ADMIT Internal Medicine; ATTEND Internal Medicine
DX: K22.4 Dyskinesia of esophagus (principal); R13.10 Dysphagia, unspecified; I25.10 Atherosclerotic heart disease of native coronary artery without angina pectoris; I10 Essential (primary) hypertension; E78.5 Hyperlipidemia, unspecified; J44.9 Chronic obstructive pulmonary disease, unspecified; K21.9 Gastro-esophageal reflux disease without esophagitis; R11.2 Nausea with vomiting, unspecified; I44.4 Left anterior fascicular block; E66.9 Obesity, unspecified; Z68.37 Body mass index [BMI] 37.0-37.9, adult
CPT/HCPCS: 0241U-QW; 36415; 71045-TC-FY; 74018-TC-FY; 80053; 82550; 82962; 83690; 83735; 83880; 84484; 85025; 85610; 85730; 87045; 87046; 87205; 87324; 87449; 93005; 93010; 97116-GP; 97162-GP; 99285-25; J1644

== ENCOUNTER 2023-12-30 15:31 | Inpatient (IN) | payer OTHER ==
[2023-12-30] MEDS ORDERED: ALBUTEROL SO4 2.5/IPRATROPIUM 0.5 INH SOL 3 ML VIAL.NEB. NEB ONE (15:53)
[2023-12-30] MEDS: ALBUTEROL SO4 2.5/IPRATROPIUM 0.5 INH SOL 3 ML VIAL.NEB. NEB ONE (16:06)
[2023-12-30] MEDS ORDERED: methylPREDNISolone NA SUCC 125 MG/2 ML VIAL ONE (16:28)
[2023-12-30] MEDS: methylPREDNISolone NA SUCC 125 MG/2 ML VIAL IVPUSH ONE (16:46)
[2023-12-30] MEDS ORDERED: ALBUTEROL SO4 0.083% IH SOL 2.5 MG/3 ML VIAL.NEB. NEB ONE (16:49)
[2023-12-30] MEDS: ALBUTEROL SO4 0.083% IH SOL 2.5 MG/3 ML VIAL.NEB. NEB ONE (16:50)
[2023-12-30] MEDS: BUDESONIDE 0.5 MG/2 ML INH SUSP VIAL NEB ONE (16:57)
[2023-12-30 17:01] LABS: BASO % 0.3 % (0-2.0); EOS % 4.1 % (0-4.5); HEMATOCRIT 44.2 % (32.4-45.2); HEMOGLOBIN 14.6 GM/dL (10.7-15.3); LYMPH % 24.7 % (8-40); MCH 32.1 pg (25.7-33.7); MEAN CELL VOLUME 97.1 fl (80-96); MEAN PLT VOLUME 8.1 fl (7.5-11.1); MONO % 9.2 % (3.8-10.2); NEUT % 61.7 % (42.8-82.8); PLATELET COUNT 247 10^3/uL (134-434); RBC 4.56 M/mm3 (3.60-5.2); WHITE BLOOD COUNT 9.9 K/mm3 (4.0-10.0)
[2023-12-30 17:10] LABS: VENOUS BASE EXCESS 0.6 mmol/L (-2-2); VENOUS O2 SATURATION 58.5 % (70-80); VENOUS PCO2 59.9 mmHg (38-52); VENOUS PH 7.299 (7.310-7.410)
[2023-12-30 18:14] LABS: POTASSIUM 3.8 mmol/L (3.5-5.1)
[2023-12-30 18:16] LABS: CALCIUM 8.9 mg/dL (8.5-10.1)
[2023-12-30 18:17] LABS: ALBUMIN 3.5 g/dl (3.4-5.0); BLOOD UREA NITROGEN 15.9 mg/dL (7-18)
[2023-12-30 18:21] LABS: BILIRUBIN,TOTAL 0.7 mg/dL (0.2-1)
[2023-12-30 18:24] LABS: N-TERMINAL BNP 1202.1 pg/ml (5-450)
[2023-12-31] MEDS ORDERED: ALBUTEROL SO4 2.5/IPRATROPIUM 0.5 INH SOL 3 ML VIAL.NEB. NEB PRN ×2 (00:06→04:07)
[2023-12-31 03:23] VITALS: BMI 34.2
[2023-12-31] MEDS ORDERED: SIMETHICONE 80 MG TAB.CHEW (FP) PO PRN (03:54)
[2023-12-31] MEDS ORDERED: GABAPENTIN 300 MG CAPSULE PO PRN (04:01)
[2023-12-31] MEDS: ASPIRIN 325 MG TABLET PO SCH (06:14)
[2023-12-31] MEDS: ATORVASTATIN CA 10 MG TABLET (FP) PO SCH (06:14)
[2023-12-31] MEDS: metoPROLOL SUCCINATE 25 MG TAB.SR.24H (FP) PO SCH (06:14)
[2023-12-31] MEDS: VENLAFAXINE HCL 75 MG E.R. CAPSULES PO SCH (06:15)
[2023-12-31] MEDS: methylPREDNISolone NA SUCC 40 MG/1 ML VIAL IVPUSH SCH (11:00)
[2023-12-31 11:44] LABS: POTASSIUM 4.4 mmol/L (3.5-5.1)
[2023-12-31 11:47] LABS: CALCIUM 9.1 mg/dL (8.5-10.1)
[2023-12-31 11:48] LABS: ALBUMIN 3.4 g/dl (3.4-5.0); BLOOD UREA NITROGEN 25.3 mg/dL (7-18); MAGNESIUM 2.1 mg/dL (1.8-2.4)
[2023-12-31 11:51] LABS: CREATININE 1.1 mg/dL (0.55-1.3)
[2023-12-31 11:52] LABS: BILIRUBIN,TOTAL 0.4 mg/dL (0.2-1); TOT PROT 6.9 g/dl (6.4-8.2)
[2023-12-31] MEDS ORDERED: BENZOCAINE/MENTH/CETYLPYRD CL 1 EACH LOZENGE MM PRN (13:08)
[2023-12-31] MEDS ORDERED: ALBUTEROL SO4 0.083% IH SOL 2.5 MG/3 ML VIAL.NEB. NEB PRN (13:11)
[2023-12-31] MEDS ORDERED: ALBUTEROL SO4 2.5/IPRATROPIUM 0.5 INH SOL 3 ML VIAL.NEB. NEB SCH (14:00)
[2023-12-31] MEDS: FLUTICASONE/UMECLIDIN/VILANTER(200-62.5-25 TRELEGY ELLIPTA) INAHLER IH SCH (17:50)
[2023-12-31] MEDS ORDERED: ATORVASTATIN CA 10 MG TABLET (FP) PO SCH (19:21)
[2023-12-31] MEDS ORDERED: CLOPIDOGREL BISULFATE 75 MG TABLET (FP) PO SCH (19:30)
[2023-12-31] MEDS: ATORVASTATIN CA 80 MG TABLET (FP) PO SCH (21:28)
[2023-12-31] MEDS: guaiFENesin 200 MG/10 ML 10 ML UNIT-DOSE CUPS PO PRN (21:28)
[2023-12-31] MEDS: ENOXAPARIN NA (PORCINE) 100 MG/1 ML DISP.SYRIN SQ SCH (21:28)
[2023-12-31] MEDS: NICOTINE 21 MG/24 HOURS TOPICAL PATCH TD SCH (21:33)
[2023-12-31] MEDS: CLOPIDOGREL BISULFATE 300 MG TABLET PO ONE (21:39)
[2023-12-31] MEDS ORDERED: PATIENT'S OWN MEDICATION (NON-FORMULARY) (Pravastatin Sodium 20 MG Tablet) PO SCH (22:00)
[2023-12-31] MEDS ORDERED: MOMETASONE FUROATE 220 MCG/IH INHALER IH SCH ×2 (22:00)
[2024-01-01 08:33] LABS: PROTHROMBIN TIME (PATIENT) 11.6 SEC (9.7-13.0)
[2024-01-01 08:35] LABS: ACTIVATED PTT 31.6 SECONDS (25.2-36.5)
[2024-01-01 08:36] LABS: HEMATOCRIT 40.1 % (32.4-45.2); HEMOGLOBIN 13.3 GM/dL (10.7-15.3); LYMPH % 11.3 % (8-40); MCH 32.1 pg (25.7-33.7); MCHC 33.1 g/dl (32.0-36.0); MONO % 7.4 % (3.8-10.2); NEUT % 81.3 % (42.8-82.8); PLATELET COUNT 255 10^3/uL (134-434); RBC 4.13 M/mm3 (3.60-5.2); RDW 14.2 % (11.6-15.6); WHITE BLOOD COUNT 17.8 K/mm3 (4.0-10.0)
[2024-01-01 08:55] LABS: POTASSIUM 4.6 mmol/L (3.5-5.1)
[2024-01-01 09:03] LABS: CALCIUM 8.8 mg/dL (8.5-10.1)
[2024-01-01 09:04] LABS: MAGNESIUM 2.3 mg/dL (1.8-2.4)
[2024-01-01 09:06] LABS: BLOOD UREA NITROGEN 29.2 mg/dL (7-18)
[2024-01-01 09:07] LABS: PHOSPHOROUS 3.4 mg/dL (2.5-4.9)
[2024-01-01 09:08] LABS: CREATININE 0.9 mg/dL (0.55-1.3)
[2024-01-01] MEDS ORDERED: PATIENT'S OWN MEDICATION (NON-FORMULARY) (Tiotropium Bromide [Spiriva] 1 PUFF Inh) IH SCH (10:00)
[2024-01-01] MEDS: amLODIPine BESYLATE 5 MG TABLET (FP) PO SCH (10:57)
[2024-01-01] MEDS: PANTOPRAZOLE 40 MG TABLET PO SCH (10:57)
[2024-01-01] MEDS: predniSONE 20 MG TABLET (UD) PO SCH (10:57)
[2024-01-01] MEDS: CLOPIDOGREL BISULFATE 75 MG TABLET (FP) PO SCH (10:57)
[2024-01-01] MEDS: FOLIC ACID 1 MG TABLET (FP) PO SCH (10:58)
[2024-01-01] MEDS: ASPIRIN COATED 81 MG TABLET.EC PO SCH (10:58)
[2024-01-01] MEDS: LACTOBACILLUS ACIDOPHILUS 1 TABLET PO SCH (10:58)
[2024-01-01] MEDS: MAG HYDROX/AL HYDROX/SIMETH 30 ML UNIT-DOSE CUP PO PRN (17:10)
[2024-01-01] MEDS: DOXYCYCLINE HYCLATE 100 MG CAPSULE PO SCH (18:47)
[2024-01-02] MEDS ORDERED: metoPROLOL SUCCINATE 25 MG TAB.SR.24H (FP) PO SCH (06:26)
[2024-01-02] MEDS: amLODIPine BESYLATE 5 MG TABLET (FP) PO SCH (09:20)
[2024-01-02 15:33] LABS: BASO % 0.2 % (0-2.0); HEMATOCRIT 43.8 % (32.4-45.2); HEMOGLOBIN 14.4 GM/dL (10.7-15.3); MCH 31.8 pg (25.7-33.7); MCHC 32.9 g/dl (32.0-36.0); MEAN CELL VOLUME 96.4 fl (80-96); MEAN PLT VOLUME 8.4 fl (7.5-11.1); MONO % 2.3 % (3.8-10.2); NEUT % 86.5 % (42.8-82.8); PLATELET COUNT 284 10^3/uL (134-434); RBC 4.54 M/mm3 (3.60-5.2); RDW 13.9 % (11.6-15.6); WHITE BLOOD COUNT 11.5 K/mm3 (4.0-10.0)
[2024-01-02 15:56] LABS: POTASSIUM 4.3 mmol/L (3.5-5.1)
[2024-01-02 15:59] LABS: ALBUMIN 3.4 g/dl (3.4-5.0); BLOOD UREA NITROGEN 23.2 mg/dL (7-18)
[2024-01-02 16:04] LABS: BILIRUBIN,TOTAL 0.5 mg/dL (0.2-1); TOT PROT 6.7 g/dl (6.4-8.2)
[2024-01-02] MEDS: ALBUTEROL SO4 0.083% IH SOL 2.5 MG/3 ML VIAL.NEB. NEB SCH (16:10)
[2024-01-02] MEDS ORDERED: ENOXAPARIN NA (PORCINE) 100 MG/1 ML DISP.SYRIN SQ SCH (22:00)
[2024-01-03] MEDS: metoPROLOL SUCCINATE 25 MG TAB.SR.24H (FP) PO SCH (09:21)
[2024-01-03] MEDS: LISINOPRIL 5 MG TABLET PO SCH (17:27)
[2024-01-04] MEDS: ASPIRIN 81 MG CHEWABLE TABLETS PO SCH (09:33)
[2024-01-04 11:50] LABS: HEMATOCRIT 41.3 % (32.4-45.2); HEMOGLOBIN 13.8 GM/dL (10.7-15.3); MCHC 33.5 g/dl (32.0-36.0); MEAN CELL VOLUME 95.8 fl (80-96); MEAN PLT VOLUME 8.2 fl (7.5-11.1); PLATELET COUNT 235 10^3/uL (134-434); RBC 4.31 M/mm3 (3.60-5.2); RDW 13.9 % (11.6-15.6); WHITE BLOOD COUNT 10.6 K/mm3 (4.0-10.0)
[2024-01-04 12:14] LABS: CALCIUM 8.6 mg/dL (8.5-10.1)
[2024-01-04 12:16] LABS: ALBUMIN 2.9 g/dl (3.4-5.0); BLOOD UREA NITROGEN 20.8 mg/dL (7-18); MAGNESIUM 2.1 mg/dL (1.8-2.4)
[2024-01-04 12:17] LABS: CREATININE 0.8 mg/dL (0.55-1.3)
[2024-01-04 12:20] LABS: BILIRUBIN,TOTAL 0.6 mg/dL (0.2-1); TOT PROT 5.7 g/dl (6.4-8.2)
[2024-01-04 17:55] VITALS: BP 95/62; RESP 18; TEMP 98
[2024-01-04 18:36] VITALS: PULSE 74
== END 2024-01-04 18:55 | disposition short-term general hospital (02) | DRG 280 ==
LOC: JER 15:31 → JERBED 16:39 → J4W 12-31 02:15
PROVIDERS: ADMIT Student in an Organized Health Care Education/Training Program; ATTEND Internal Medicine
DX: I21.4 Non-ST elevation (NSTEMI) myocardial infarction (principal); J96.01 Acute respiratory failure with hypoxia; J96.02 Acute respiratory failure with hypercapnia; J44.1 Chronic obstructive pulmonary disease with (acute) exacerbation; E78.5 Hyperlipidemia, unspecified; I25.10 Atherosclerotic heart disease of native coronary artery without angina pectoris; I11.0 Hypertensive heart disease with heart failure; E03.9 Hypothyroidism, unspecified; F32.9 Major depressive disorder, single episode, unspecified; R07.9 Chest pain, unspecified; G47.33 Obstructive sleep apnea (adult) (pediatric); I44.0 Atrioventricular block, first degree; J30.9 Allergic rhinitis, unspecified; K21.9 Gastro-esophageal reflux disease without esophagitis; E66.9 Obesity, unspecified; Z68.34 Body mass index [BMI] 34.0-34.9, adult
CPT/HCPCS: 0241U-QW; 36415; 71045-TC-FY; 80048; 80053; 80061; 82803; 82962; 83036; 83735; 83880; 84100; 84439; 84443; 84484; 85025; 85027; 85610; 85730; 87635; 93005; 93010; 93306-TC; 94640; 94660; 94761; 99285-25

== ENCOUNTER 2024-06-11 14:21 | Inpatient (IN) | payer OTHER ==
[2024-06-11] MEDS ORDERED: ALBUTEROL SO4 2.5/IPRATROPIUM 0.5 INH SOL 3 ML VIAL.NEB. NEB ONE (17:03)
[2024-06-11] MEDS: ALBUTEROL SO4 2.5/IPRATROPIUM 0.5 INH SOL 3 ML VIAL.NEB. NEB ONE (17:13)
[2024-06-11] MEDS ORDERED: methylPREDNISolone NA SUCC 125 MG/2 ML VIAL ONE (17:44)
[2024-06-11 17:48] LABS: EOS % 4.3 % (0-4.5); HEMATOCRIT 44.6 % (32.4-45.2); HEMOGLOBIN 14.6 GM/dL (10.7-15.3); LYMPH % 25.5 % (8-40); MCH 31.9 pg (25.7-33.7); MCHC 32.7 g/dl (32.0-36.0); MEAN CELL VOLUME 97.5 fl (80-96); MONO % 9.8 % (3.8-10.2); NEUT % 59.4 % (42.8-82.8); PLATELET COUNT 274 10^3/uL (134-434); RBC 4.58 M/mm3 (3.60-5.2); RDW 14.2 % (11.6-15.6); WHITE BLOOD COUNT 11.4 K/mm3 (4.0-10.0)
[2024-06-11 17:55] LABS: INR 0.98 (0.83-1.09); PROTHROMBIN TIME (PATIENT) 11.1 SEC (9.7-13.0)
[2024-06-11 17:57] LABS: VENOUS BASE EXCESS -1.2 mmol/L (-2-2); VENOUS O2 SATURATION 42.1 % (70-80); VENOUS PCO2 51.1 mmHg (38-52); VENOUS PH 7.319 (7.310-7.410)
[2024-06-11] MEDS: methylPREDNISolone NA SUCC 125 MG/2 ML VIAL IVPUSH ONE (18:02)
[2024-06-11 18:14] LABS: ALBUMIN 3.6 g/dl (3.4-5.0)
[2024-06-11 18:15] LABS: BLOOD UREA NITROGEN 19.8 mg/dL (7-18); MAGNESIUM 2.5 mg/dL (1.8-2.4)
[2024-06-11 18:19] LABS: BILIRUBIN,TOTAL 0.9 mg/dL (0.2-1); TOT PROT 6.8 g/dl (6.4-8.2)
[2024-06-11] MEDS ORDERED: ASPIRIN 81 MG CHEWABLE TABLETS ONE (19:17)
[2024-06-11] MEDS: ASPIRIN 81 MG CHEWABLE TABLETS PO ONE (19:31)
[2024-06-11] MEDS ORDERED: ACETAMINOPHEN 325 MG TABLET (FP) ONE (21:55)
[2024-06-11] MEDS ORDERED: AZITHROMYCIN IVPB 500 MG/250 ML BAG IVPB ONE (21:55)
[2024-06-11] MEDS: AZITHROMYCIN IVPB 500 MG/250 ML BAG IVPB ONE (21:57)
[2024-06-11] MEDS: ACETAMINOPHEN 325 MG TABLET (FP) PO PRN (21:58)
[2024-06-12 00:19] VITALS: BMI 35.1
[2024-06-12] MEDS: methylPREDNISolone NA SUCC 40 MG/1 ML VIAL IVPUSH SCH (01:05)
[2024-06-12] MEDS ORDERED: ALBUTEROL SO4 2.5/IPRATROPIUM 0.5 INH SOL 3 ML VIAL.NEB. NEB PRN (05:44)
[2024-06-12 06:14] VITALS: RESP 18
[2024-06-12 06:54] LABS: HEMATOCRIT 41.9 % (32.4-45.2); HEMOGLOBIN 13.8 GM/dL (10.7-15.3); MCHC 32.9 g/dl (32.0-36.0); MEAN CELL VOLUME 97.3 fl (80-96); PLATELET COUNT 266 10^3/uL (134-434); RBC 4.31 M/mm3 (3.60-5.2); WHITE BLOOD COUNT 9.1 K/mm3 (4.0-10.0)
[2024-06-12 07:20] LABS: POTASSIUM 4.3 mmol/L (3.5-5.1)
[2024-06-12 07:23] LABS: BLOOD UREA NITROGEN 21.9 mg/dL (7-18); CALCIUM 9.1 mg/dL (8.5-10.1)
[2024-06-12 07:27] LABS: CREATININE 1.3 mg/dL (0.55-1.3)
[2024-06-12] MEDS: PANTOPRAZOLE 40 MG TABLET PO SCH (07:40)
[2024-06-12] MEDS: HEPARIN NA (PORCINE) 5,000 UNITS/ML 1ML VIAL SQ SCH (09:27)
[2024-06-12] MEDS: SERTRALINE HCL 50 MG TABLET (FP) PO SCH (09:27)
[2024-06-12] MEDS: ASPIRIN 81 MG CHEWABLE TABLETS PO SCH (09:27)
[2024-06-12] MEDS: metoPROLOL SUCCINATE 25 MG TAB.SR.24H (FP) PO SCH (09:27)
[2024-06-12] MEDS: amLODIPine BESYLATE 5 MG TABLET (FP) PO SCH (09:28)
[2024-06-12] MEDS: AZITHROMYCIN IVPB 500 MG/250 ML BAG IVPB SCH (09:28)
[2024-06-12] MEDS: LISINOPRIL 5 MG TABLET PO SCH (09:28)
[2024-06-12 11:05] LABS: ANISOCYTOSIS 0; MACROCYTOSIS 0
[2024-06-12 12:30] LABS: MAGNESIUM 2.4 mg/dL (1.8-2.4)
[2024-06-12] MEDS ORDERED: ALBUTEROL SO4 0.083% IH SOL 2.5 MG/3 ML VIAL.NEB. NEB PRN (13:59)
[2024-06-12] MEDS: ALBUTEROL SO4 2.5/IPRATROPIUM 0.5 INH SOL 3 ML VIAL.NEB. NEB SCH (15:33)
[2024-06-12] MEDS: FLUTICASONE/UMECLIDIN/VILANTER(200-62.5-25 TRELEGY ELLIPTA) INAHLER IH SCH (17:13)
[2024-06-12] MEDS: guaiFENesin/D-METHORPHAN HB 10 ML UNIT-DOSE CUPS PO PRN (19:09)
[2024-06-12] MEDS: GABAPENTIN 300 MG CAPSULE PO SCH (21:44)
[2024-06-13 08:10] VITALS: BP 124/42; PULSE 58; TEMP 97.2
== END 2024-06-13 11:38 | disposition short-term general hospital (02) | DRG 309 ==
LOC: JER 14:21 → JERBED 19:04 → J4W 23:40 → OBSVTOIN 06-12 14:43
PROVIDERS: ADMIT Internal Medicine; ATTEND Internal Medicine
DX: I45.3 Trifascicular block (principal); J44.1 Chronic obstructive pulmonary disease with (acute) exacerbation; I25.10 Atherosclerotic heart disease of native coronary artery without angina pectoris; I25.2 Old myocardial infarction; I10 Essential (primary) hypertension; K21.9 Gastro-esophageal reflux disease without esophagitis; F43.10 Post-traumatic stress disorder, unspecified; F17.210 Nicotine dependence, cigarettes, uncomplicated; I44.1 Atrioventricular block, second degree; F32.A Depression, unspecified; E78.5 Hyperlipidemia, unspecified; I73.9 Peripheral vascular disease, unspecified; E66.9 Obesity, unspecified; Z68.35 Body mass index [BMI] 35.0-35.9, adult; R79.89 Other specified abnormal findings of blood chemistry
CPT/HCPCS: 0241U-QW; 36415; 71045-TC-FY; 80048; 80053; 80061; 82803; 83735; 83880; 84443; 84481; 84484; 85025; 85610; 93005; 93010; 93971-TC; 94640; 99285-25; G0378; J1644

== ENCOUNTER 2024-07-22 15:08 | Inpatient (IN) | payer OTHER ==
[2024-07-22 16:27] LABS: BASO % 1.5 % (0-2.0); EOS % 4.3 % (0-4.5); HEMATOCRIT 41.3 % (32.4-45.2); HEMOGLOBIN 13.9 GM/dL (10.7-15.3); LYMPH % 21.8 % (8-40); MCH 31.6 pg (25.7-33.7); MCHC 33.6 g/dl (32.0-36.0); MEAN CELL VOLUME 93.9 fl (80-96); MEAN PLT VOLUME 7.9 fl (7.5-11.1); MONO % 6.8 % (3.8-10.2); NEUT % 65.6 % (42.8-82.8); PLATELET COUNT 331 10^3/uL (134-434); RDW 13.8 % (11.6-15.6); WHITE BLOOD COUNT 9.9 K/mm3 (4.0-10.0)
[2024-07-22] MEDS: ALBUTEROL SO4 2.5/IPRATROPIUM 0.5 INH SOL 3 ML VIAL.NEB. NEB SCH (16:40)
[2024-07-22] MEDS ORDERED: predniSONE 20 MG TABLET (UD) ONE (16:50)
[2024-07-22] MEDS: predniSONE 20 MG TABLET (UD) PO ONE (16:51)
[2024-07-22 16:54] LABS: POTASSIUM 4.1 mmol/L (3.5-5.1)
[2024-07-22 16:56] LABS: ALBUMIN 3.5 g/dl (3.4-5.0)
[2024-07-22 16:57] LABS: BLOOD UREA NITROGEN 17.8 mg/dL (7-18)
[2024-07-22 17:00] LABS: CREATININE 1.1 mg/dL (0.55-1.3)
[2024-07-22 17:01] LABS: VENOUS BASE EXCESS 0.1 mmol/L (-2-2); VENOUS PCO2 47.3 mmHg (38-52); VENOUS PH 7.359 (7.310-7.410)
[2024-07-22 17:01] LABS: BILIRUBIN,TOTAL 0.8 mg/dL (0.2-1); TOT PROT 6.6 g/dl (6.4-8.2)
[2024-07-22 17:04] LABS: N-TERMINAL BNP 533.2 pg/ml (5-450)
[2024-07-22] MEDS ORDERED: ATORVASTATIN CA 10 MG TABLET (FP) ONE (21:59)
[2024-07-22] MEDS: ATORVASTATIN CA 10 MG TABLET (FP) PO SCH (22:04)
[2024-07-23 06:55] LABS: HEMOGLOBIN 12.9 GM/dL (10.7-15.3); MCH 31.4 pg (25.7-33.7); MEAN CELL VOLUME 94.9 fl (80-96); MEAN PLT VOLUME 8.2 fl (7.5-11.1); PLATELET COUNT 301 10^3/uL (134-434); RBC 4.11 M/mm3 (3.60-5.2); RDW 13.4 % (11.6-15.6); WHITE BLOOD COUNT 10.7 K/mm3 (4.0-10.0)
[2024-07-23 07:05] LABS: POTASSIUM 4.6 mmol/L (3.5-5.1)
[2024-07-23 07:13] LABS: BLOOD UREA NITROGEN 17.9 mg/dL (7-18); CALCIUM 8.9 mg/dL (8.5-10.1)
[2024-07-23 07:14] LABS: MAGNESIUM 2.1 mg/dL (1.8-2.4)
[2024-07-23 07:16] LABS: CREATININE 0.9 mg/dL (0.55-1.3)
[2024-07-23 07:17] LABS: PHOSPHOROUS 3.9 mg/dL (2.5-4.9)
[2024-07-23] MEDS ORDERED: CLOPIDOGREL BISULFATE 75 MG TABLET (FP) ONE (09:37)
[2024-07-23] MEDS ORDERED: LISINOPRIL 5 MG TABLET ONE (09:37)
[2024-07-23] MEDS ORDERED: ASPIRIN 81 MG CHEWABLE TABLETS ONE (09:37)
[2024-07-23] MEDS ORDERED: amLODIPine BESYLATE 5 MG TABLET (FP) ONE (09:37)
[2024-07-23] MEDS ORDERED: SERTRALINE HCL 50 MG TABLET (FP) ONE (09:37)
[2024-07-23] MEDS: LISINOPRIL 5 MG TABLET PO SCH (09:39)
[2024-07-23] MEDS: SERTRALINE HCL 50 MG TABLET (FP) PO SCH (09:40)
[2024-07-23] MEDS: amLODIPine BESYLATE 5 MG TABLET (FP) PO SCH (09:40)
[2024-07-23] MEDS ORDERED: metoPROLOL SUCCINATE 25 MG TAB.SR.24H (FP) PO SCH (10:00)
[2024-07-23] MEDS: CLOPIDOGREL BISULFATE 75 MG TABLET (FP) PO SCH (10:14)
[2024-07-23] MEDS: ASPIRIN COATED 81 MG TABLET.EC PO SCH (10:14)
[2024-07-23] MEDS ORDERED: methylPREDNISolone NA SUCC 40 MG/1 ML VIAL ONE ×2 (12:09→18:01)
[2024-07-23] MEDS: methylPREDNISolone NA SUCC 40 MG/1 ML VIAL IVPUSH SCH (12:15)
[2024-07-23] MEDS ORDERED: ALBUTEROL SO4 0.083% IH SOL 2.5 MG/3 ML VIAL.NEB. NEB ONE ×2 (14:07→18:07)
[2024-07-23] MEDS: ALBUTEROL SO4 0.083% IH SOL 2.5 MG/3 ML VIAL.NEB. NEB SCH (14:15)
[2024-07-23] MEDS: FLUTICASONE/UMECLIDIN/VILANTER(200-62.5-25 TRELEGY ELLIPTA) INAHLER IH SCH (14:15)
[2024-07-23] MEDS: ALBUTEROL SO4 0.083% IH SOL 2.5 MG/3 ML VIAL.NEB. NEB PRN (18:16)
[2024-07-24] MEDS ORDERED: methylPREDNISolone NA SUCC 40 MG/1 ML VIAL ONE (02:41)
[2024-07-24] MEDS ORDERED: ATORVASTATIN CA 10 MG TABLET (FP) ONE (02:54)
[2024-07-24 07:21] LABS: BASO % 0.1 % (0-2.0); HEMATOCRIT 38.3 % (32.4-45.2); HEMOGLOBIN 12.4 GM/dL (10.7-15.3); LYMPH % 7.8 % (8-40); MCHC 32.3 g/dl (32.0-36.0); MEAN CELL VOLUME 95.8 fl (80-96); MEAN PLT VOLUME 8.2 fl (7.5-11.1); MONO % 2.1 % (3.8-10.2); PLATELET COUNT 282 10^3/uL (134-434); RDW 13.4 % (11.6-15.6)
[2024-07-24 07:47] LABS: POTASSIUM 4.9 mmol/L (3.5-5.1)
[2024-07-24 07:50] LABS: ALBUMIN 3.2 g/dl (3.4-5.0); BLOOD UREA NITROGEN 25.3 mg/dL (7-18)
[2024-07-24 07:53] LABS: CREATININE 0.9 mg/dL (0.55-1.3)
[2024-07-24 07:55] LABS: BILIRUBIN,TOTAL 0.4 mg/dL (0.2-1); TOT PROT 6.2 g/dl (6.4-8.2)
[2024-07-24] MEDS: ATORVASTATIN CA 20 MG TABLET (FP) PO SCH (22:16)
[2024-07-24] MEDS: PANTOPRAZOLE 40 MG TABLET PO ONE (22:16)
[2024-07-24] MEDS: MELATONIN 5 MG TABLETS PO ONE (22:16)
[2024-07-25] MEDS: methylPREDNISolone NA SUCC 40 MG/1 ML VIAL IVPUSH SCH (09:40)
[2024-07-26 10:54] VITALS: RESP 18
[2024-07-26 14:39] VITALS: BP 105/55; PULSE 89; TEMP 98.2
[2024-07-26 22:06] VITALS: BMI 38.7
== END 2024-07-26 15:56 | disposition home or self-care (01) | DRG 191 ==
LOC: JER 15:08 → JERBED 18:49 → OBSVTOIN 19:37 → J4W 07-24 10:21
PROVIDERS: ADMIT Internal Medicine; ATTEND Family Medicine
DX: J44.1 Chronic obstructive pulmonary disease with (acute) exacerbation (principal); I24.89 Other forms of acute ischemic heart disease; I45.3 Trifascicular block; I50.42 Chronic combined systolic (congestive) and diastolic (congestive) heart failure; I25.10 Atherosclerotic heart disease of native coronary artery without angina pectoris; Z99.81 Dependence on supplemental oxygen; E78.5 Hyperlipidemia, unspecified; F32.A Depression, unspecified; K21.9 Gastro-esophageal reflux disease without esophagitis; I73.9 Peripheral vascular disease, unspecified; F43.10 Post-traumatic stress disorder, unspecified; I11.0 Hypertensive heart disease with heart failure; F17.210 Nicotine dependence, cigarettes, uncomplicated; E05.90 Thyrotoxicosis, unspecified without thyrotoxic crisis or storm
CPT/HCPCS: 0241U-QW; 36415; 71045-TC-FY; 71250-TC; 80048; 80053; 80061; 82803; 82962; 83735; 83880; 84100; 84443; 84484; 85025; 85027; 93005; 93010; 94640; 99285-25; G0378

== ENCOUNTER 2024-08-17 16:15 | Observation (INO) | payer OTHER ==
[2024-08-17 16:25] VITALS: BMI 32.3
[2024-08-17] MEDS: ALBUTEROL SO4 2.5/IPRATROPIUM 0.5 INH SOL 3 ML VIAL.NEB. NEB SCH (16:45)
[2024-08-17] MEDS ORDERED: ALBUTEROL SO4 2.5/IPRATROPIUM 0.5 INH SOL 3 ML VIAL.NEB. NEB ONE ×2 (16:48→16:55)
[2024-08-17] MEDS ORDERED: methylPREDNISolone NA SUCC 125 MG/2 ML VIAL ONE (17:34)
[2024-08-17 17:37] LABS: BASO % 0.5 % (0-2.0); EOS % 3.9 % (0-4.5); HEMATOCRIT 39.8 % (32.4-45.2); HEMOGLOBIN 13.3 GM/dL (10.7-15.3); MCH 31.4 pg (25.7-33.7); MCHC 33.3 g/dl (32.0-36.0); MEAN CELL VOLUME 94.3 fl (80-96); MEAN PLT VOLUME 7.4 fl (7.5-11.1); MONO % 6.5 % (3.8-10.2); NEUT % 61.1 % (42.8-82.8); PLATELET COUNT 275 10^3/uL (134-434); RBC 4.22 M/mm3 (3.60-5.2); RDW 14.6 % (11.6-15.6); WHITE BLOOD COUNT 10.6 K/mm3 (4.0-10.0)
[2024-08-17] MEDS ORDERED: MAGNESIUM SULFATE IN WATER 2 GM/50 ML IVPB IVPB ONE (17:41)
[2024-08-17 17:42] LABS: INR 0.97 (0.83-1.09)
[2024-08-17] MEDS: methylPREDNISolone NA SUCC 125 MG/2 ML VIAL IVPUSH ONE (17:42)
[2024-08-17 17:44] LABS: VENOUS BASE EXCESS -2.1 mmol/L (-2-2); VENOUS O2 SATURATION 59.1 % (70-80); VENOUS PCO2 53.3 mmHg (38-52); VENOUS PH 7.292 (7.310-7.410)
[2024-08-17] MEDS: MAGNESIUM SULFATE IN WATER 2 GM/50 ML IVPB IVPB ONE (17:44)
[2024-08-17 17:45] LABS: ACTIVATED PTT 37.7 SECONDS (25.2-36.5)
[2024-08-17 18:28] LABS: POTASSIUM 3.7 mmol/L (3.5-5.1)
[2024-08-17 18:30] LABS: ALBUMIN 3.3 g/dl (3.4-5.0); CALCIUM 8.8 mg/dL (8.5-10.1)
[2024-08-17 18:31] LABS: BLOOD UREA NITROGEN 22.4 mg/dL (7-18)
[2024-08-17 18:34] LABS: PHOSPHOROUS 2.2 mg/dL (2.5-4.9)
[2024-08-17 18:35] LABS: BILIRUBIN,TOTAL 0.4 mg/dL (0.2-1); TOT PROT 6.2 g/dl (6.4-8.2)
[2024-08-17 18:39] LABS: N-TERMINAL BNP 353.9 pg/ml (5-450)
[2024-08-17 19:24] LABS: HIV INTERPRETATION NEGATIVE (NEGATIVE)
[2024-08-17] MEDS ORDERED: NAPH,MB-DB/K PH,MBDB POWDER PACKET ONE (19:32)
[2024-08-17] MEDS: NAPH,MB-DB/K PH,MBDB POWDER PACKET PO ONE (19:36)
[2024-08-17] MEDS ORDERED: ALBUTEROL SO4 0.083% IH SOL 2.5 MG/3 ML VIAL.NEB. NEB PRN (23:52)
[2024-08-18] MEDS: PANTOPRAZOLE 40 MG TABLET PO SCH (00:11)
[2024-08-18] MEDS: ATORVASTATIN CA 40 MG TABLET (FP) PO SCH (00:12)
[2024-08-18] MEDS: SERTRALINE HCL 50 MG TABLET (FP) PO SCH (00:12)
[2024-08-18] MEDS: methylPREDNISolone NA SUCC 40 MG/1 ML VIAL IVPUSH SCH (03:44)
[2024-08-18 09:16] LABS: HEMATOCRIT 39.3 % (32.4-45.2); MCH 31.6 pg (25.7-33.7); MEAN CELL VOLUME 95.9 fl (80-96); MEAN PLT VOLUME 8.3 fl (7.5-11.1); PLATELET COUNT 283 10^3/uL (134-434); RDW 14.3 % (11.6-15.6); WHITE BLOOD COUNT 10.1 K/mm3 (4.0-10.0)
[2024-08-18 09:29] LABS: POTASSIUM 4.8 mmol/L (3.5-5.1)
[2024-08-18] MEDS: LISINOPRIL 5 MG TABLET PO SCH (09:29)
[2024-08-18] MEDS: ASPIRIN COATED 81 MG TABLET.EC PO SCH (09:29)
[2024-08-18] MEDS: amLODIPine BESYLATE 5 MG TABLET (FP) PO SCH (09:29)
[2024-08-18 09:32] LABS: BLOOD UREA NITROGEN 21.4 mg/dL (7-18)
[2024-08-18] MEDS: FLUTICASONE/UMECLIDIN/VILANTER(200-62.5-25 TRELEGY ELLIPTA) INAHLER IH SCH (09:33)
[2024-08-18 10:21] LABS: ANISOCYTOSIS 0; MACROCYTOSIS 0
[2024-08-18 10:23] LABS: PLATELET ESTIMATE ADEQUATE
[2024-08-19] MEDS: ALBUTEROL SO4 0.083% IH SOL 2.5 MG/3 ML VIAL.NEB. NEB SCH (11:49)
[2024-08-19] MEDS: methylPREDNISolone NA SUCC 40 MG/1 ML VIAL IVPUSH SCH (21:13)
[2024-08-20] MEDS: predniSONE 20 MG TABLET (UD) PO SCH (10:36)
[2024-08-20 11:19] VITALS: BP 119/62; PULSE 72; RESP 17; TEMP 98.2
[2024-08-20] MEDS ORDERED: predniSONE 20 MG TABLET (UD) PO SCH (22:00)
== END 2024-08-20 12:56 | disposition home or self-care (01) ==
LOC: JER 16:15 → JERBED 18:58 → J4W 23:22
PROVIDERS: ADMIT Internal Medicine; ATTEND Family Medicine
PROC: 3E0F7GC Introduction of Other Therapeutic Substance into Respiratory Tract, Via Natural or Artificial Opening (ICD-10-PCS; principal; 2024-08-17)
PROC: 3E033GC Introduction of Other Therapeutic Substance into Peripheral Vein, Percutaneous Approach (ICD-10-PCS; 2024-08-17)
DX: J44.1 Chronic obstructive pulmonary disease with (acute) exacerbation (principal); E78.5 Hyperlipidemia, unspecified; I25.2 Old myocardial infarction; I11.0 Hypertensive heart disease with heart failure; E11.9 Type 2 diabetes mellitus without complications; Z88.1 Allergy status to other antibiotic agents; Z79.84 Long term (current) use of oral hypoglycemic drugs; E78.00 Pure hypercholesterolemia, unspecified; E07.9 Disorder of thyroid, unspecified
CPT/HCPCS: 0241U-QW; 36415; 71045-TC-FY; 80048; 80053; 80061; 82550; 82803; 83735; 83880; 84100; 84484; 85025; 85610; 85730; 86803; 86850; 86900; 86901; 87389; 93005; 93010; 94640; 96365; 96375; 96376; 99285-25; G0378

== ENCOUNTER 2024-09-23 11:09 | Observation (INO) | payer OTHER ==
[2024-09-23 11:15] VITALS: BMI 32.3
[2024-09-23] MEDS ORDERED: ASPIRIN COATED 81 MG TABLET.EC ONE (12:41)
[2024-09-23] MEDS: ASPIRIN 81 MG CHEWABLE TABLETS PO ONE (12:59)
[2024-09-23 13:05] LABS: BASO % 0.3 % (0-2.0); EOS % 0.8 % (0-4.5); HEMATOCRIT 40.5 % (32.4-45.2); HEMOGLOBIN 13.7 GM/dL (10.7-15.3); LYMPH % 22.4 % (8-40); MCH 31.5 pg (25.7-33.7); MCHC 33.8 g/dl (32.0-36.0); MEAN CELL VOLUME 93.4 fl (80-96); MEAN PLT VOLUME 7.2 fl (7.5-11.1); MONO % 9.9 % (3.8-10.2); NEUT % 66.6 % (42.8-82.8); PLATELET COUNT 373 10^3/uL (134-434); RBC 4.34 M/mm3 (3.60-5.2); RDW 15.5 % (11.6-15.6); WHITE BLOOD COUNT 12.5 K/mm3 (4.0-10.0)
[2024-09-23 13:18] LABS: ACTIVATED PTT 32.6 SECONDS (25.2-36.5); INR 0.91 (0.83-1.09); PROTHROMBIN TIME (PATIENT) 10.5 SEC (9.7-13.0)
[2024-09-23 13:19] LABS: POTASSIUM 3.8 mmol/L (3.5-5.1)
[2024-09-23 13:21] LABS: ALBUMIN 3.6 g/dl (3.4-5.0); CALCIUM 8.8 mg/dL (8.5-10.1)
[2024-09-23 13:23] LABS: BLOOD UREA NITROGEN 19.1 mg/dL (7-18)
[2024-09-23 13:27] LABS: BILIRUBIN,TOTAL 0.5 mg/dL (0.2-1); TOT PROT 6.4 g/dl (6.4-8.2)
[2024-09-23] MEDS: SODIUM CHLORIDE 0.9% 500 ML INFUS.BAG IV ONE (13:55)
[2024-09-23] MEDS ORDERED: DOCUSATE SODIUM 100 MG CAPSULE (FP) PO PRN (22:35)
[2024-09-23] MEDS ORDERED: ACETAMINOPHEN 325 MG TABLET (FP) PO PRN (22:35)
[2024-09-23] MEDS ORDERED: FAMOTIDINE 10 MG TABLET ONE (22:44)
[2024-09-23] MEDS ORDERED: ATORVASTATIN CA 40 MG TABLET (FP) ONE (22:45)
[2024-09-23] MEDS: ATORVASTATIN CA 40 MG TABLET (FP) PO SCH (22:48)
[2024-09-23] MEDS: FAMOTIDINE 10 MG TABLET PO SCH (22:48)
[2024-09-24] MEDS: ALBUTEROL SO4 0.083% IH SOL 2.5 MG/3 ML VIAL.NEB. NEB PRN (02:58)
[2024-09-24 07:43] LABS: BASO % 0.4 % (0-2.0); EOS % 1.2 % (0-4.5); HEMATOCRIT 40.5 % (32.4-45.2); HEMOGLOBIN 13.4 GM/dL (10.7-15.3); LYMPH % 21.2 % (8-40); MCH 31.2 pg (25.7-33.7); MCHC 33.1 g/dl (32.0-36.0); MEAN CELL VOLUME 94.2 fl (80-96); MEAN PLT VOLUME 7.4 fl (7.5-11.1); MONO % 9.1 % (3.8-10.2); NEUT % 68.1 % (42.8-82.8); PLATELET COUNT 334 10^3/uL (134-434); RBC 4.29 M/mm3 (3.60-5.2); RDW 16.1 % (11.6-15.6); WHITE BLOOD COUNT 10.2 K/mm3 (4.0-10.0)
[2024-09-24 07:59] LABS: POTASSIUM 4.3 mmol/L (3.5-5.1)
[2024-09-24 08:02] LABS: CALCIUM 8.8 mg/dL (8.5-10.1)
[2024-09-24 08:03] LABS: BLOOD UREA NITROGEN 13.1 mg/dL (7-18)
[2024-09-24 08:05] LABS: CREATININE 0.9 mg/dL (0.55-1.3)
[2024-09-24] MEDS ORDERED: LISINOPRIL 5 MG TABLET ONE (10:32)
[2024-09-24] MEDS ORDERED: ASPIRIN COATED 81 MG TABLET.EC ONE (10:32)
[2024-09-24] MEDS ORDERED: FUROSEMIDE 20 MG TABLET (FP) ONE (10:32)
[2024-09-24] MEDS ORDERED: FAMOTIDINE 10 MG TABLET ONE (10:32)
[2024-09-24] MEDS ORDERED: ACETAMINOPHEN 325 MG TABLET (FP) ONE (10:32)
[2024-09-24] MEDS ORDERED: amLODIPine BESYLATE 5 MG TABLET (FP) ONE (10:32)
[2024-09-24] MEDS: amLODIPine BESYLATE 5 MG TABLET (FP) PO SCH (10:35)
[2024-09-24] MEDS: LISINOPRIL 5 MG TABLET PO SCH (10:35)
[2024-09-24] MEDS: ASPIRIN COATED 81 MG TABLET.EC PO SCH (10:35)
[2024-09-24] MEDS: FUROSEMIDE 20 MG TABLET (FP) PO SCH (10:35)
[2024-09-24] MEDS: FLUTICASONE/UMECLIDIN/VILANTER(200-62.5-25 TRELEGY ELLIPTA) INAHLER IH SCH (10:56)
[2024-09-24 19:11] LABS: RETICULOCYTES 2.17 % (0.5-1.5)
[2024-09-25 01:46] LABS: PH,URINE 5.5 (5.0-8.0); URINE APPEARANCE CLEAR; URINE BILIRUBIN NEGATIVE (NEGATIVE); URINE COLOR YELLOW; URINE GLUCOSE (UA) NEGATIVE (NEGATIVE); URINE KETONE NEGATIVE (NEGATIVE); URINE LEUK ESTERASE TRACE (NEGATIVE); URINE NITRITE NEGATIVE (NEGATIVE); URINE PROTEIN NEGATIVE (NEGATIVE); URINE UROBILINOGEN 0.2 mg/dL (0.2-1.0)
[2024-09-25 03:49] LABS: EPI CELLS 8.7 /uL (0-25.1); HYALINE CASTS 0.41 /uL (0-3.1); URINE BACTERIA 40.6 /uL (0-1359); URINE RBC 5.4 /uL (0-23.9); URINE WBC 7.5 /uL (0-25.8)
[2024-09-25] MEDS: SERTRALINE HCL 50 MG TABLET (FP) PO SCH (10:40)
[2024-09-25] MEDS ORDERED: BENZOCAINE/MENTH/CETYLPYRD CL 1 EACH LOZENGE MM PRN (10:56)
[2024-09-25] MEDS ORDERED: ONDANSETRON 4 MG TABLET PO PRN (11:03)
[2024-09-25] MEDS: ALBUTEROL SO4 0.083% IH SOL 2.5 MG/3 ML VIAL.NEB. NEB PRN (11:21)
[2024-09-25] MEDS: methylPREDNISolone NA SUCC 40 MG/1 ML VIAL IVPUSH SCH (17:50)
[2024-09-25] MEDS: NICOTINE 14 MG/24 HOURS TOPICAL PATCH TD SCH (17:50)
[2024-09-26 09:20] VITALS: BP 125/57; PULSE 92; RESP 20; TEMP 97.6
[2024-09-26] MEDS: CLOPIDOGREL BISULFATE 75 MG TABLET (FP) PO SCH (09:22)
[2024-09-26] MEDS: LISINOPRIL 5 MG TABLET PO SCH (09:22)
[2024-09-26] MEDS ORDERED: predniSONE 20 MG TABLET (UD) PO SCH (13:00)
[2024-09-27 17:09] LABS: GLIADIN ANTIBODY IGA 7 units (0-19); GLIADIN ANTIBODY IGG 3 units (0-19); TRANSGLUTAMINASE IGG < 2 U/mL (0-5)
== END 2024-09-26 12:02 | disposition home or self-care (01) ==
LOC: JER 11:09 → JERBED 20:18 → J4S 09-24 18:16
PROVIDERS: ADMIT Internal Medicine; ATTEND Family Medicine
PROC: 3E0333Z Introduction of Anti-inflammatory into Peripheral Vein, Percutaneous Approach (ICD-10-PCS; principal; 2024-09-23)
PROC: 3E0337Z Introduction of Electrolytic and Water Balance Substance into Peripheral Vein, Percutaneous Approach (ICD-10-PCS; 2024-09-23)
PROC: 3E0F7SF Introduction of Other Gas into Respiratory Tract, Via Natural or Artificial Opening (ICD-10-PCS; 2024-09-23)
DX: J44.1 Chronic obstructive pulmonary disease with (acute) exacerbation (principal); I44.0 Atrioventricular block, first degree; J96.01 Acute respiratory failure with hypoxia; J96.02 Acute respiratory failure with hypercapnia; I11.0 Hypertensive heart disease with heart failure; I50.9 Heart failure, unspecified; I25.10 Atherosclerotic heart disease of native coronary artery without angina pectoris; I25.2 Old myocardial infarction; E78.5 Hyperlipidemia, unspecified; I73.9 Peripheral vascular disease, unspecified; G47.33 Obstructive sleep apnea (adult) (pediatric); Z85.828 Personal history of other malignant neoplasm of skin; R07.89 Other chest pain; F17.210 Nicotine dependence, cigarettes, uncomplicated; Z95.0 Presence of cardiac pacemaker; Z99.89 Dependence on other enabling machines and devices; Z99.81 Dependence on supplemental oxygen; E03.9 Hypothyroidism, unspecified
CPT/HCPCS: 0241U-QW; 36415; 71275-TC; 76705-TC; 80048; 80053; 80061; 81003; 82103; 82390; 82550; 82728; 82784; 83036; 83516; 83540; 83735; 83880; 83883; 84439; 84443; 84484; 85025; 85045; 85610; 85730; 87086; 93005; 93010; 93306-TC; 93970-TC; 94640; 96374; 97116-GP; 97161-GP; 99285-25; G0378

== ENCOUNTER 2024-12-18 12:02 | Inpatient (IN) | payer OTHER ==
[2024-12-18 12:24] VITALS: BMI 32.3
[2024-12-18] MEDS ORDERED: FAMOTIDINE 20 MG/50 ML IVPB 20 MG/50 ML MG IVPB ONE (12:49)
[2024-12-18] MEDS ORDERED: methylPREDNISolone NA SUCC 125 MG/2 ML VIAL ONE (13:31)
[2024-12-18] MEDS ORDERED: MAG HYDROX/AL HYDROX/SIMETH 30 ML UNIT-DOSE CUP ONE (13:31)
[2024-12-18] MEDS ORDERED: ALBUTEROL SO4 2.5/IPRATROPIUM 0.5 INH SOL 3 ML VIAL.NEB. NEB ONE (13:31)
[2024-12-18] MEDS ORDERED: ACETAMINOPHEN INJECTION 100 ML ONE (13:31)
[2024-12-18 13:45] LABS: VENOUS BASE EXCESS -1.9 mmol/L (-2-2); VENOUS O2 SATURATION 35.4 % (70-80); VENOUS PCO2 56.2 mmHg (38-52); VENOUS PH 7.281 (7.310-7.410)
[2024-12-18] MEDS: ACETAMINOPHEN 1000 MG/100 ML BAG IVPB ONE (13:49)
[2024-12-18] MEDS: ALBUTEROL SO4 2.5/IPRATROPIUM 0.5 INH SOL 3 ML VIAL.NEB. NEB SCH (13:50)
[2024-12-18] MEDS: methylPREDNISolone NA SUCC 125 MG/2 ML VIAL IVPUSH ONE (13:50)
[2024-12-18 13:53] LABS: INR 0.92 (0.83-1.09); PROTHROMBIN TIME (PATIENT) 10.1 SEC (9.7-13.0)
[2024-12-18 13:56] LABS: ABSOLUTE IMMATURE GRANULOCYTES 0.17 x10^3/uL (0.0-0.031); ACTIVATED PTT 24.1 SECONDS (25.2-36.5); BASOPHILS # 0.02 x10^3/uL (0.01-0.08); HEMATOCRIT 45.4 % (34.1-44.9); HEMOGLOBIN 14.1 g/dL (11.2-15.7); MCHC 31.1 g/dl (32.2-35.5); MEAN CELL VOLUME 97.6 fl (79.4-94.8); MEAN PLT VOLUME 9.7 fl (9.4-12.3); MONOCYTE # 0.79 x10^3/uL (0.24-0.86); MONOCYTE % 4.2 % (4.7-12.5); PLATELET COUNT # 230 x10^3/uL (182-369); RDW 14.2 % (12.4-16.6)
[2024-12-18 14:02] LABS: POTASSIUM 4.6 mmol/L (3.5-5.1)
[2024-12-18 14:04] LABS: ALBUMIN 3.2 g/dl (3.4-5.0); CALCIUM 8.6 mg/dL (8.5-10.1)
[2024-12-18 14:05] LABS: BLOOD UREA NITROGEN 33.8 mg/dL (7-18); MAGNESIUM 2.2 mg/dL (1.8-2.4)
[2024-12-18 14:08] LABS: CREATININE 0.9 mg/dL (0.55-1.3)
[2024-12-18 14:09] LABS: BILIRUBIN,TOTAL 0.6 mg/dL (0.2-1); TOT PROT 6.4 g/dl (6.4-8.2)
[2024-12-18 14:13] LABS: N-TERMINAL BNP 382.2 pg/ml (5-450)
[2024-12-18 14:21] LABS: LACTIC ACID 3.2 mmol/L (0.4-2.0)
[2024-12-18] MEDS: SODIUM CHLORIDE 0.9% 500 ML INFUS.BAG IV ONE (15:24)
[2024-12-18] MEDS ORDERED: AZITHROMYCIN IVPB 500 MG/250 ML BAG IVPB ONE (15:43)
[2024-12-18] MEDS: AZITHROMYCIN IVPB 500 MG in DEXTROSE 5%-WATER - 250 ML IVPB ONE (16:08)
[2024-12-18] MEDS: MAG HYDROX/AL HYDROX/SIMETH 30 ML UNIT-DOSE CUP PO ONE (16:14)
[2024-12-18] MEDS ORDERED: ALBUTEROL SO4 0.083% IH SOL 2.5 MG/3 ML VIAL.NEB. NEB PRN (17:51)
[2024-12-18 17:57] LABS: LACTIC ACID 2.4 mmol/L (0.4-2.0)
[2024-12-18] MEDS ORDERED: CEFTRIAXONE 1 G/50 ML PREMIX 50 ML IVPB ONE (18:31)
[2024-12-18] MEDS ORDERED: methylPREDNISolone NA SUCC 40 MG/1 ML VIAL ONE (18:32)
[2024-12-18] MEDS: methylPREDNISolone NA SUCC 40 MG/1 ML VIAL IVPUSH SCH (19:28)
[2024-12-18] MEDS: CEFTRIAXONE 1 G/50 ML PREMIX 50 ML IVPB SCH (19:28)
[2024-12-18 21:17] LABS: LACTIC ACID 3.8 mmol/L (0.4-2.0)
[2024-12-18] MEDS ORDERED: ATORVASTATIN CA 10 MG TABLET (FP) ONE (22:35)
[2024-12-18] MEDS: ATORVASTATIN CA 10 MG TABLET (FP) PO SCH (22:39)
[2024-12-19 08:04] LABS: POTASSIUM 4.7 mmol/L (3.5-5.1)
[2024-12-19 08:14] LABS: BILIRUBIN,TOTAL 0.5 mg/dL (0.2-1); TOT PROT 6.4 g/dl (6.4-8.2)
[2024-12-19 08:15] LABS: ALBUMIN 3.2 g/dl (3.4-5.0); CREATININE 0.9 mg/dL (0.55-1.3)
[2024-12-19 08:16] LABS: BLOOD UREA NITROGEN 33.5 mg/dL (7-18)
[2024-12-19 08:17] LABS: CALCIUM 8.4 mg/dL (8.5-10.1); MAGNESIUM 2.5 mg/dL (1.8-2.4)
[2024-12-19 08:24] LABS: HEMOGLOBIN 13.9 g/dL (11.2-15.7); LACTIC ACID 2.3 mmol/L (0.4-2.0); MCHC 31.6 g/dl (32.2-35.5); MEAN CELL VOLUME 96.7 fl (79.4-94.8); MEAN PLT VOLUME 10.2 fl (9.4-12.3); PLATELET COUNT # 232 x10^3/uL (182-369); RDW 14.3 % (12.4-16.6)
[2024-12-19] MEDS ORDERED: SERTRALINE HCL 50 MG TABLET (FP) PO SCH (10:00)
[2024-12-19] MEDS: CLOPIDOGREL BISULFATE 75 MG TABLET (FP) PO SCH (10:00)
[2024-12-19] MEDS: SERTRALINE HCL 50 MG TABLET (FP) PO SCH (10:00)
[2024-12-19] MEDS: LISINOPRIL 5 MG TABLET PO SCH (10:00)
[2024-12-19] MEDS: amLODIPine BESYLATE 5 MG TABLET (FP) PO SCH (10:00)
[2024-12-19] MEDS: ASPIRIN COATED 81 MG TABLET.EC PO SCH (10:01)
[2024-12-19] MEDS: FLUTICASONE/UMECLIDIN/VILANTER(200-62.5-25 TRELEGY ELLIPTA) INAHLER IH SCH (10:15)
[2024-12-19 14:36] LABS: LACTIC ACID 3.2 mmol/L (0.4-2.0)
[2024-12-19 16:04] LABS: LACTIC ACID 4.2 mmol/L (0.4-2.0)
[2024-12-19 16:46] LABS: ARTERIAL BLD GAS O2 SATURATION 95.8 % (95-98); ARTERIAL BLOOD GAS BASE EXCESS -1.6 mmol/L (-2-2); ARTERIAL BLOOD GAS PO2 79.3 mmHg (80-100); ARTERIAL BLOOD GAS pH 7.403 (7.350-7.450)
[2024-12-19 16:47] LABS: ALLENS TEST POSITIVE
[2024-12-19 16:48] LABS: VENT MODE ROOM AIR
[2024-12-19 17:35] LABS: LACTIC ACID 2.6 mmol/L (0.4-2.0)
[2024-12-20 07:53] LABS: ABSOLUTE IMMATURE GRANULOCYTES 0.16 x10^3/uL (0.0-0.031); BASOPHILS # 0.03 x10^3/uL (0.01-0.08); EOSINOPHIL % 0.1 % (0.7-5.8); EOSINOPHILS # 0.02 x10^3/uL (0.04-0.36); HEMOGLOBIN 13.8 g/dL (11.2-15.7); MCHC 32.1 g/dl (32.2-35.5); MEAN CELL VOLUME 96.4 fl (79.4-94.8); MONOCYTE # 0.74 x10^3/uL (0.24-0.86); MONOCYTE % 4.2 % (4.7-12.5); PLATELET COUNT # 230 x10^3/uL (182-369); RDW 14.2 % (12.4-16.6)
[2024-12-20 08:18] LABS: POTASSIUM 4.6 mmol/L (3.5-5.1)
[2024-12-20 08:32] LABS: BLOOD UREA NITROGEN 36.2 mg/dL (7-18)
[2024-12-20 08:33] LABS: ALBUMIN 3.2 g/dl (3.4-5.0); CALCIUM 8.9 mg/dL (8.5-10.1)
[2024-12-20 08:37] LABS: CREATININE 0.9 mg/dL (0.55-1.3)
[2024-12-20 08:38] LABS: BILIRUBIN,TOTAL 0.6 mg/dL (0.2-1)
[2024-12-20] MEDS: FUROSEMIDE 20 MG TABLET (FP) PO SCH (09:41)
[2024-12-20 12:30] VITALS: BP 115/47; PULSE 94; RESP 19; TEMP 97.5
== END 2024-12-20 13:09 | disposition home or self-care (01) | DRG 191 ==
LOC: JER 12:02 → JERBED 16:35 → J4W 23:06
PROVIDERS: ADMIT Internal Medicine; ATTEND Internal Medicine
DX: J44.1 Chronic obstructive pulmonary disease with (acute) exacerbation (principal); I50.32 Chronic diastolic (congestive) heart failure; E87.20 Acidosis, unspecified; I11.0 Hypertensive heart disease with heart failure; J45.909 Unspecified asthma, uncomplicated; E03.9 Hypothyroidism, unspecified
CPT/HCPCS: 0241U-QW; 36415; 36600; 71045-TC-FY; 71275-TC; 76705-TC; 80053; 80061; 82803; 82962; 83036; 83605; 83690; 83735; 83880; 84443; 84484; 85025; 85610; 85730; 87899; 93005; 93010; 94660; 99285-25; J0131